=== PATIENT | female | born 1950 | race African-American/Black ===

== ENCOUNTER 2020-06-18 08:29 | Outpatient (NON) | payer MEDICARE, SELFPAY ==
[2020-06-18 21:13] LABS: SARS-CoV-2 RNA PCR Negative
== END 2020-06-18 08:30 ==
PROVIDERS: PCP Internal Medicine; Visit Provider Internal Medicine
DX: Z20.822 Contact with and (suspected) exposure to COVID-19 (principal); R68.89 Other general symptoms and signs
CPT/HCPCS: C9803; U0003; U0005

== ENCOUNTER → 2020-09-03 11:49 | Outpatient (CLI) | payer MEDICARE, SELFPAY ==
--- NOTE | ~2020-09-03 | XR_ITS ---
EXAMINATION: XR chest 2V DATE: 09/03/2020 11:57 INDICATION: Cough. TECHNIQUE: Frontal and lateral views of the chest were obtained. COMPARISON: Chest 2 views 04/27/2019 FINDINGS: The chest demonstrates clear lungs without pneumonia, pleural effusion, or pneumothorax. Th e heart size is normal. IMPRESSION: 1. No acute cardiopulmonary disease. Reviewed, dictated and finalized at location A.
== END ==
PROVIDERS: PCP Internal Medicine; Visit Provider Internal Medicine
DX: R05 Cough (principal)
CPT/HCPCS: 71046

== ENCOUNTER 2020-09-19 10:38 | Outpatient (CLI) | payer MEDICARE, SELFPAY ==
--- NOTE | ~2020-09-19 | MM_ITS ---
EXAMINATION: MM screening [facility] BI w christy HISTORY: Screening mammogram TECHNIQUE: Craniocaudal and mediolateral oblique 3-D tomosynthesis images were obtained and synthetic 2-D images were generated. CAD analysis was submitted and interpreted. COMPARISON: 06/05/2019, 05/13/2018, 05/10/2017 bilateral digital screening mammogram examinations BREAST PARENCHYMAL COMPOSITION: There are scattered areas of fibroglandular density. FINDINGS: Bilateral subcentimeter some circumscribed masses are noted. Bilateral diagnostic mammograp hy and breast ultrasound examination are recommended. IMPRESSION: 1. Bilateral breast masses. 2. Bilateral diagnostic mammography and bilateral breast ultrasound examination are recommended BI-RADS Category 0: Incomplete: Needs additional imaging evaluation. Reviewed, dictated and finalized at location A.
== END 2020-09-19 10:39 | disposition home or self-care (01) ==
LOC: ANHIMG 10:45
PROVIDERS: PCP Internal Medicine; Visit Provider Internal Medicine
DX: Z12.31 Encounter for screening mammogram for malignant neoplasm of breast (principal); R92.8 Other abnormal and inconclusive findings on diagnostic imaging of breast
CPT/HCPCS: 77063; 77067

== ENCOUNTER 2020-10-11 11:04 | Outpatient (CLI) | payer MEDICARE, SELFPAY ==
--- NOTE | ~2020-10-11 | MMUS_ITS ---
EXAMINATION: MM diagnostic mammo BI, US breast BI limited HISTORY: Follow-up breast asymmetries TECHNIQUE: Additional 3-D tomosynthesis images of the breasts were performed and synthetic 2-D images were generated. CAD analysis was submitted and interpreted. High resolution limited bilateral breast ultrasound was performed. COMPARISON: 09/19/2020 BREAST PARENCHYMAL COMPOSITION: Breast composed of scattered areas of fibroglandular density FINDINGS: MAMMOGRAPHIC FINDINGS: There are no suspicious masses, calcifications or architectural distortion in either breast to sugges t malignancy. ULTRASOUND: Bilateral limited breast ultrasound: In the right breast at 1:00, 3 cm from the nipple there is a 4 m m minimally complicated cysts. No suspicious masses to suggest malignancy in either breast. IMPRESSION: 1. No evidence for malignancy in either breast. 2. Routine yearly screening mammogram and regular clinical breast examination are recommended. BI-RADS Category 2: Benign finding(s). Reviewed, dictated and finalized at location A. IMPRESSION: 1. No evidence for malignancy in either breast. 2. Routine yearly screening mammogram and regular clinical breast examination a re recommended. BI-RADS Category 2: Benign finding(s).
== END 2020-10-11 11:05 | disposition home or self-care (01) ==
LOC: ANHIMG 11:05
PROVIDERS: PCP Internal Medicine; Visit Provider Internal Medicine
DX: R92.8 Other abnormal and inconclusive findings on diagnostic imaging of breast (principal)
CPT/HCPCS: 76642; 77066

== ENCOUNTER 2021-11-14 08:35 | Outpatient (CLI) | payer MEDICARE, SELFPAY ==
--- NOTE | ~2021-11-14 | MM_ITS ---
EXAMINATION: MM screening [facility] BI w christy HISTORY: Screening mammogram TECHNIQUE: Craniocaudal and mediolateral oblique 3-D tomosynthesis images were obtained and synthetic 2-D images were generated. CAD analysis was submitted and interpreted. COMPARISON: No prior mammogram is available for comparison at this institution. BREAST PARENCHYMAL COMPOSITION: There are scattered areas of fibroglandular density. FINDINGS: There is no evidence of suspicious mass, calcification, or architectural distortion to sugg est malignancy in either breast. There has been no suspicious interval change. IMPRESSION: 1. No mammographic evidence of malignancy. 2. Recommend routine screening mammography in one year. BI-RADS Category 1: Negative Reviewed, dictated and finalized at location A.
== END 2021-11-14 08:36 | disposition home or self-care (01) ==
LOC: ANHIMG 08:38
PROVIDERS: PCP Internal Medicine; Visit Provider Internal Medicine
DX: Z12.31 Encounter for screening mammogram for malignant neoplasm of breast (principal)
CPT/HCPCS: 77063; 77067

== ENCOUNTER 2022-02-26 10:58 | Outpatient (CLI) | payer MEDICARE, SELFPAY ==
[2022-02-26 20:56] LABS: Hemoglobin A1C 6.3 % (<5.7)
== END 2022-02-26 10:59 | disposition home or self-care (01) ==
LOC: ANHGOSHLAB 11:00
PROVIDERS: PCP Family Medicine; Visit Provider Family Medicine
DX: R73.09 Other abnormal glucose (principal)
CPT/HCPCS: 36415; 83036

== ENCOUNTER 2022-04-23 00:29 | Day surgery (SDC) | payer MEDICARE, SELFPAY ==
[2022-04-08 10:15] VITALS: BMI 39.6
[2022-04-23 09:10] VITALS: BP 181/83; PULSE 85; RESP 18; TEMP 36.2; O2SAT 100
--- NOTE | 2022-04-23 09:14 | P.PNAN_ITS ---
Anes - Initial Pre Proc Eval Procedure: Operation Date: 04/23/22 09:30 Proposed Procedures p Screening Colonoscopy - Van Menon MD Date/Time: 04/23/22 09:14 Surgeon: Van Menon MD Pre Op Diagnosis: neoplasm screening Patient Data Age: 71 Gender: F Height: 1.68 m Weight: 109.9 kg Last Vital Signs Temp 36.2 C L 04/23/22 09:10 Pulse 85 04/23/22 09:10 Resp 18 04/23/22 09:10 BP 181/83 H 04/23/22 09:10 Pulse Ox 100 04/23/22 09:10 O2 Del Method Room Air 04/23/22 09:10 Allergies Allergy/AdvReac Type Severity Reaction Status Date / Time No Known Allergies Allergy Unknown Verified 04/23/22 09:05 Home Medications Medication Instructions Recorded Confirmed Type cetirizine 10 mg tablet (24Hour 5 mg PO DAILY PRN allergy symptoms 04/27/19 04/08/22 Rx Allergy) #10 tabs amlodipine 10 mg tablet 10 mg PO DAILY #90 tabs 12/02/20 04/08/22 Rx valsartan 160 1 tablet PO DAILY #90 tabs 12/02/20 04/08/22 Rx mg-hydrochlorothiazide 25 mg tablet budesonide 32 mcg/actuation nasal 2 spray intranasal BID #8.43 mL 01/06/22 04/08/22 Rx spray Patient hx anesthesia problems: none Family hx anesthesia problems: none Results Review: All pre-operative results and documents have been reviewed as part of the pre- operative evaluation. [facility] Past Medical History Medical History Hypertension Surgical History Surgical History Acquired absence of both cervix and uterus H/O section Family History Family History Mother Cerebrovascular accident Father Family history of renal failure Social History Social History Smoking status: Never smoker Alcohol intake: never Substance use type: does not use Living arrangements: with family Gender identity (if verbalized by the patient): Female Spiritual care concerns: No Anes - Eval Final PreProcedure Day of Procedure 04/23/22 09:14 Patient weight: obese Lungs: clear to auscultation Airway: Mallampati scale class II Neurological: alert and oriented Last oral intake: >/= 8 hours ASA classification: II Emergent: no Anesthetic plan: proceed Anesthesia type and monitoring: general GIVS and standard monitoring Results Review: All pre-operative results and documents have been reviewed as part of the pre- operative evaluation. Informed Consent: The patient's anesthetic plan and its attendant risks and benefits were discussed with the patient/family/POA. Questions were solicited and answers provided to the satisfaction of the patient/family/POA.
[2022-04-23] MEDS: LACTATED RINGERS 1,000 ML 150 ML IV CONT (09:18)
--- NOTE | 2022-04-23 09:26 | PM.HPGS ---
History of Present Illness History of Present Illness Consent: Risks, benefits, and alternatives have been discussed and questions answered. Patient agrees to proceed with procedure. Chief complaint: neoplasm screening Narrative: Karen Reyes is a 71 year old female Presents for screening colonoscopy. Patient's current weight appetite and bowel movements are normal. She patient denies abdominal pain. She has had no bleeding. Family history is significant that her father had colon cancer. Patient presents today for screening colonoscopy. Review of Systems Review of Systems: Review of systems noncontributory. [facility] Past Medical History Medical History (Updated 04/23/22 @ 09:28 by Van Menon MD) Hypertension Surgical History Surgical History Acquired absence of both cervix and uterus H/O section Family History Family History Mother Cerebrovascular accident Father Family history of renal failure Social History Social History Smoking status: Never smoker Alcohol intake: never Substance use type: does not use Living arrangements: with family Gender identity (if verbalized by the patient): Female Spiritual care concerns: No Meds Home Medications and Allergies Home Medications Medication Instructions Recorded Confirmed Type cetirizine 10 mg tablet (24Hour 5 mg PO DAILY PRN allergy symptoms 04/27/19 04/08/22 Rx Allergy) #10 tabs amlodipine 10 mg tablet 10 mg PO DAILY #90 tabs 12/02/20 04/08/22 Rx valsartan 160 1 tablet PO DAILY #90 tabs 12/02/20 04/08/22 Rx mg-hydrochlorothiazide 25 mg tablet budesonide 32 mcg/actuation nasal 2 spray intranasal BID #8.43 mL 01/06/22 04/08/22 Rx spray Allergies Allergy/AdvReac Type Severity Reaction Status Date / Time No Known Allergies Allergy Unknown Verified 04/23/22 09:05 Vital Signs Vital Signs - 24 hr 04/23/22 09:10 Temperature 97.2 F L Pulse Rate 85 Respiratory Rate 18 Blood Pressure 181/83 H Pulse Oximetry 100 Oxygen Delivery Room Air Exam Narrative: Physical exam reveals patient to be alert. Vital signs stable. HEENT exam is unremarkable. Patient is anicteric. Lungs are clear to auscultation and percussion. Heart is without murmur or extra sounds. Abdomen bowel sounds are present soft nontender with no organomegaly. Digital external rectal exam is normal. Assessment and Plan Assessment and plan (1) Family history of colon cancer in father: Code(s): Z80.0 - Family history of malignant neoplasm of digestive organs Status: Acute Assessment and Plan: Patient's father had colon cancer. For this reason screening colonoscopy is suggested at 5 year intervals. Further recommendations will be given after endoscopy.
[2022-04-23 10:18] VITALS: BP 125/67; PULSE 68; RESP 13; O2SAT 100
[2022-04-23 10:28] VITALS: BP 159/75; PULSE 67; RESP 14; O2SAT 100
[2022-04-23 10:38] VITALS: BP 160/78; PULSE 62; RESP 18; O2SAT 100
== END 2022-04-23 10:39 | disposition home or self-care (01) ==
PROVIDERS: PCP Family Medicine; Visit Provider Internal Medicine Gastroenterology
PROC: 0DJD8ZZ Inspection of Lower Intestinal Tract, Via Natural or Artificial Opening Endoscopic (ICD-10-PCS; CPT 45378; principal; 2022-04-23 09:30)
DX: Z12.11 Encounter for screening for malignant neoplasm of colon (principal); K64.8 Other hemorrhoids; K57.30 Diverticulosis of large intestine without perforation or abscess without bleeding; I10 Essential (primary) hypertension; E66.9 Obesity, unspecified; Z68.39 Body mass index [BMI] 39.0-39.9, adult; Z79.899 Other long term (current) drug therapy; Z80.0 Family history of malignant neoplasm of digestive organs
CPT/HCPCS: G0105; J2704; J7120

== ENCOUNTER 2023-02-16 09:51 | Outpatient (CLI) | payer MEDICARE, SELFPAY ==
--- NOTE | ~2023-02-16 | MM_ITS ---
EXAMINATION: MM screening [facility] BI w christy HISTORY: Screening mammogram TECHNIQUE: Craniocaudal and mediolateral oblique 3-D tomosynthesis images were obtained and synthetic 2-D images were generated. CAD analysis was submitted and interpreted. COMPARISON: 11/10/2021 bilateral screening mammogram 10/11/2020 diagnostic bilateral mammogram and Limited bilateral breast ultrasound examination 09/19/2020, 06/05/2019 bilateral screening mammogram examinations BREAST PARENCHYMAL COMPOSITION: There are scattered areas of fibroglandular density. FINDINGS: There is no evidence of suspicious mass, calcification, or architectural distortion to sugg est malignancy in either breast. There has been no suspicious interval change. IMPRESSION: 1. No mammographic evidence of malignancy. 2. Recommend routine screening mammography in one year. BI-RADS Category 1: Negative Reviewed, dictated and finalized at location A.
--- NOTE | ~2023-02-16 | DEXA_ITS ---
Bone Density Report Name: BING GARBER Age: 72 Sex: Female Ethnicity: White Date of : 1950 Indication: postmenopausal; screening for osteoporosis; height loss; hysterectomy; Referring Provider: CRISTEL PARSON Study: Bone densitometry was performed. Exam Date: February 16, 2023 Accession number: [id number] Bone Density: Region BMD T-score Z-score Classification AP Spine(L1-L4) 1.033 -0.1 2.1 Normal Femoral Neck (Left) 0.843 -0.1 1.9 Normal Total Hip (Left) 0.986 0.4 2.0 Normal Femoral Neck (Right) 0.741 -1.0 1.0 Normal Total Hip (Right) 0.990 0.4 2.0 Normal Total Hip Mean 0.988 0.4 2.0 Normal World Health Organization criteria for BMD impression classify patients as: Normal (T-score at or above -1.0), Osteopenia (T-score between -1.0 and -2.5), or Osteoporosis (T-score at or below -2.5). 10-year Fracture Risk: FRAX not reported because: All T-scores for Spine Total, Hip Total, Femoral Neck at or above -1.0 Clinical Information Provided by Patient: Has used the following medications: Vitamin D, Calcium Has the following medical conditions: Hysterectomy Patient maximum height was 66 Menopause Age: 60 Does not regularly consume dairy products Drinks caffeinated beverages Onset of menses at age 12 Number of children 3 Impression: The patient has normal bone mass. Discussion: BONE DENSITY IS ABOVE THE MINIMUM DESIRABLE LEVEL AT ALL SKELETAL SITES TESTED. This patient?s bone mineral density is above the minimum desirable level (T-score -1.0 or better) at all sites measured. The patient should follow a healthful lifestyle (good nutrition with adequate calcium and vitamin D, and appropriate weight-bearing exercise). Follow-Up: Consider repeating this study in 5 years or sooner if there is some new clinical indication. Reported by: WAGNER on 02/16/2023 10:34:00 AM. Reviewed, dictated and finalized at location [facility]
== END 2023-02-16 09:52 | disposition home or self-care (01) ==
PROVIDERS: PCP Family Medicine; Visit Provider Family Medicine
DX: Z12.31 Encounter for screening mammogram for malignant neoplasm of breast (principal); Z78.0 Asymptomatic menopausal state
CPT/HCPCS: 77063; 77067; 77080

== ENCOUNTER 2023-03-04 11:09 | Outpatient (CLI) | payer MEDICARE, SELFPAY ==
[2023-03-04 19:30] LABS: Alanine Aminotransferase 13 U/L (6-35); Albumin Level 4.2 g/dL (3.5-5.1); Alkaline Phosphatase 89 U/L (38-126); Anion Gap 5 mmol/L (8-16); Aspartate Amino Transferase 29 U/L (14-36); Blood Urea Nitrogen 16 mg/dL (7-17); Calcium 9.1 mg/dL (8.4-10.2); Carbon Dioxide 32 mmol/L (22-30); Chloride 100 mmol/L (98-107); Cholesterol 197 mg/dL (0-200); Estimated Glomerular Filt Rate 59; Glucose 105 mg/dL (65-110); HDL Direct 34 mg/dL; Potassium 4.5 mmol/L (3.4-5.0); Sodium 137 mmol/L (137-145); Triglycerides 126 mg/dL (<150)
[2023-03-04 19:41] LABS: LDL Cholesterol Direct 100 mg/dL
[2023-03-04 21:05] LABS: Hemoglobin A1C 5.4 % (<5.7)
== END 2023-03-04 11:10 | disposition home or self-care (01) ==
LOC: ANHGOSHLAB 11:11
PROVIDERS: PCP Family Medicine; Visit Provider Family Medicine
DX: R73.01 Impaired fasting glucose (principal); I10 Essential (primary) hypertension; Z13.220 Encounter for screening for lipoid disorders
CPT/HCPCS: 36415; 80053; 80061; 83036

== ENCOUNTER 2023-09-16 08:41 | Outpatient (CLI) | payer MEDICARE, SELFPAY ==
--- NOTE | 2023-09-26 18:21 | WPDSLEEPSTUD ---
Sleep Study Date of Study: 09/16/23 Ordering Provider: Stef Mace DO Interpreting Physician: Pattie Key MD Sleep Study Type: Split Polysomnogram Height: 1.63 m Weight: 92.986 kg Body Mass Index: 35.2 Neck Circumference (inches): 14 Silt: 8 Reason for Sleep Study Fragmented sleep Sleep History Karen Reyes is a 73-year-old woman with fragmented sleep, never sleeping more than 5-6 hours. She takes naps during the day. She never awakens from sleep short of breath. She occasionally wakes at night with heartburn, belching, mainly coughing. She occasional snores, however never snores loudly enough that others complain. She occasionally has trouble sleeping when she has a cold. She never wakes up gasping for breath during the night. She never has breathing problems at night. She occasionally sweats excessively at night. She never notices her heart pounding or beating irregularly during the night. She frequently falls asleep during the day. She rarely falls asleep involuntarily, never falls asleep while driving. She never experiences loss of muscle tone with strong emotion. She never feels paralyzed on waking or falling asleep. She never experiences vivid dreams upon waking or falling asleep. She never feels afraid of going to sleep. She rarely has nightmares. She frequently recalls her dreams. She never has thoughts racing through her mind. She never feels sad or depressed. She never feels anxiety. She occasionally notices parts of her body jerk. She rarely kicks during the night. She never feels crawling or aching feelings in her legs. She rarely feels leg pain at night. She never has morning jaw pain, and rarely grinds her teeth at night. She rarely feels bothered by pain during the day, is rarely awakened by pain during the night. She occasionally wakes up feeling stiff in the morning, rarely wakes feeling sore or achy in the morning. She never awakens with pain in her neck, spine, or joints. Normal bedtime is midnight, falling asleep within 30 minutes or occasionally up to 1 hour, waking 1-2 times at night. While awake, she might watch television, or toss and turn until she returns to sleep. She wakes between 5:00 a.m. to 6:00 a.m., and she keeps the same schedule on weekends. She estimates getting between 5 and 6 hours of sleep at night. Her sleep may be disturbed by sinus problems, stuffiness or coughing. She takes naps in the afternoon or evening. A short nap lasting 10-15 minutes may be refreshing. She feels better in the morning compared to other times of day. Habits:??Tobacco: Never smoked Caffeine: 2 cups per week Alcohol: None Recreational substances: None [facility] Past Medical History Medical History (Updated 09/28/23 @ 12:59 by Pattie Key MD) Allergic rhinitis Gastroesophageal reflux Hypertension Surgical History Surgical History Acquired absence of both cervix and uterus H/O section Family History Family History Mother Cerebrovascular accident Father Family history of renal failure Social History Social History Smoking status: Never smoker Alcohol intake: never Substance use: never Substance use type: does not use Lack of Transportation: No Lack of Food: Never True Current Housing: I Have Housing Concerned About Future Housing: No Difficulty Paying Gas/Electric Bills: No Difficulty Paying for Meds: No Currently Unemployed: No Difficulty w/ Childcare or Family Care: No Living arrangements: with family Occupation/Education: retired Gender identity (if verbalized by the patient): Female Spiritual care concerns: No Medications Home Medications Medication Instructions Recorded Confirmed Type albuterol sulfate 90 mcg/actuation 1 inh inhalation Q4H #8.5 grams 0
[2023-09-28 12:39] VITALS: BMI 35.2
== END 2023-09-17 06:45 | disposition home or self-care (01) ==
LOC: ANHCSM 08:41
PROVIDERS: PCP Family Medicine; Visit Provider Family Medicine
DX: G47.10 Hypersomnia, unspecified (principal)
CPT/HCPCS: 95811

== ENCOUNTER 2024-02-23 14:07 | Outpatient (CLI) | payer MEDICARE, SELFPAY ==
--- NOTE | ~2024-02-23 | MM_ITS ---
EXAMINATION: MM screening [facility] BI w christy HISTORY: Screening TECHNIQUE: Craniocaudal and mediolateral oblique 3-D tomosynthesis images were obtained and synthetic 2-D images were generated. CAD analysis was submitted and interpreted. COMPARISON: Comparison to multiple prior studies sequentially, with oldest reviewed study dated 04/24. BREAST PARENCHYMAL COMPOSITION: Not dense: There are scattered areas of fibroglandular density. FINDINGS: There is a new mass in the upper inner quadrant of the right breast, anterior third. The le ft breast is stable without evidence for malignancy. IMPRESSION: 1. New right breast mass. 2. Additional mammographic views and possible breast ultrasound are recommended. BI-RADS Category 0: Incomplete: Needs additional imaging evaluation. Reviewed, dictated and finalized at location B. IMPRESSION: 1. New right breast mass. 2. Additional mammographic views and possible breast ultrasound are recommended . BI-RADS Category 0: Incomplete: Needs additional imaging evaluation.
== END 2024-02-23 14:08 | disposition home or self-care (01) ==
LOC: ANHIMG 14:09
PROVIDERS: PCP Family Medicine; Visit Provider Family Medicine
DX: N63.12 Unspecified lump in the right breast, upper inner quadrant (principal); Z12.31 Encounter for screening mammogram for malignant neoplasm of breast
CPT/HCPCS: 77063; 77067

== ENCOUNTER 2024-03-07 13:32 | Outpatient (CLI) | payer MEDICARE, SELFPAY ==
--- NOTE | ~2024-03-07 | MMUS_ITS ---
EXAMINATION: US breast RT limited, MM diagnostic [facility] RT w christy HISTORY: Follow-up right breast mass TECHNIQUE: Additional 3-D tomosynthesis images of the right breast were performed and synthetic 2-D i mages were generated. CAD analysis was submitted and interpreted. High resolution Limited right breas t ultrasound was performed. COMPARISON: Comparison to multiple prior studies sequentially, with oldest reviewed study dated 06/05. BREAST PARENCHYMAL COMPOSITION: Not dense: There are scattered areas of fibroglandular density. FINDINGS: MAMMOGRAPHIC FINDINGS: There is a small mass in the upper inner quadrant of the right breast, anterior third. There are no s uspicious calcifications or architectural distortion. ULTRASOUND: Limited right breast ultrasound: At 2:00, 2 cm from the nipple there is a slightly irregular cyst mango suring 5 mm. No suspicious masses to suggest malignancy. IMPRESSION: 1. No evidence for malignancy in the right breast. Benign finding. 2. Routine yearly screening mammogram and regular clinical breast examination are recommended. BI-RADS Category 2: Benign finding(s). Reviewed, dictated and finalized at location B. IMPRESSION: 1. No evidence for malignancy in the right breast. Benign finding. 2. Routine yearly screening mammogram and regular clinical breast examination a re recommended. BI-RADS Category 2: Benign finding(s).
== END 2024-03-07 13:33 | disposition home or self-care (01) ==
LOC: ANHIMG 13:33
PROVIDERS: PCP Family Medicine; Visit Provider Family Medicine
DX: R92.8 Other abnormal and inconclusive findings on diagnostic imaging of breast (principal); N63.10 Unspecified lump in the right breast, unspecified quadrant
CPT/HCPCS: 76642; 77061; 77065; G0279

== ENCOUNTER 2024-08-04 11:57 | Outpatient (CLI) | payer MEDICARE, SELFPAY ==
--- OUTSIDE RECORDS SUMMARY | 2024-08-04 12:25 | XMS_ITS | Encounter Summary ---
Author Organization [facility] Address [address] [place] [id number] Care Team Providers Care Automobile Radiator Mechanic Name Role Phone Daniel Franz MD Primary Care Provider [phone] Encounter Details Date Type Department Care Team (Latest Contact Info) Description 08/04/2024 Travel Social History Tobacco Use Types Packs/Day Years Used Date Smoking Tobacco: Never Smokeless Tobacco: Never Comments:Counseled by Dr. Missy aaron. Alcohol Use Standard Drinks/Week Comments Never 0 (1 standard drink = 0.6 oz pur e alcohol) AUDIT-C Answer Date Recorded Q1: How often do you have a drink containing alcohol? Never 06/20/2024 Q2: How many drinks containi ng alcohol do you have on a typical day when you are drinking? Patient does not drink Q3: How often do you have si x or more drinks on one occasion? Never 06/20/2024 PHQ-2 Answer Date Recorded Patient Health Questionnaire-2 Score 0 06/20/2024 Comments Unknown Sex and Gender Information Value Date Recorded Sex Assigned at Female 06/19/2024 7:39 AM TELEPHONE SURVEYOR Legal Sex Female 10:44 AM TELEPHONE SURVEYOR Gender Identity Female 06/19/2024 7:39 AM TELEPHONE SURVEYOR Sexual Orientation Straight 08/01/2024 8: 44 AM CDT documented as of this encounter Plan of Treatment Upcoming Encounters Date Type Department Care Team ( st Contact Info) Description 12/18/2024 8:40 AM CDT Office Visit [facility] - [place] [address] [address] [place] [address] Daniel Franz MD [facility] [address] [place] [address] documented as of this encounter Visit Diagnoses Not on filedocumented in this encounter Additional Health Concerns Assessment Noted Time PHQ-9 Depression Total Score: 2 06/20/19 25 9:08 AM TELEPHONE SURVEYOR documented as of this encounter Care Teams Automobile Radiator Mechanic Relationship Specialty Start Date End Date Daniel Franz MD [facility] [facility] [address] [place] [address] PCP - General INTERNAL MEDICINE 03/27/24 documented as of this encounter
--- OUTSIDE RECORDS SUMMARY | 2024-08-04 12:25 | XMS_ITS | Encounter Summary ---
Author Organization [facility] Address [address] [place] [address] Care Team Providers Care Global Technical Writer Name Role Phone Daniel Franz MD Primary Care Provider [phone] Reason for Visit * Reason Onset Date Comments Record Request 08/03/2024 Encounter Details Date Type Department Care Team (Late st Contact Info) Description 08/03/2024 Telephone [facility] - [place] [address] [place] [address] [address] [place] [address] Daniel Franz MD [address] [place] [address] [address] [place], [place] [id number] Record Request Social History Tobacco Use Types Packs/Day Years [...] Sex Assigned at Female 06/19/2024 7:39 AM ACID TANK CLEANER Legal Sex Female 10:44 AM ACID TANK CLEANER Gender Identity Female 06/19/2024 7:39 AM ACID TANK CLEANER Sexual Orientation Straight 08/01/2024 8: 44 AM CDT documented as of this encounter Progress Notes * Constance Nunez MA - 08/04/2024 8:37 AM CDT Karen is coming in at 10 today for a redraw * Vicki Weber - 08/03/2024 4:00 PM CDT Karen [facility] testing is asking for a copy of the EKG Tracing and labresults from August 01, 2024 so they don't have to be repeated. The patient's appointment with them is tomorrow August 04, 2024. Please them today. Thank you. documented in this encounter Plan of Treatment Upcoming Encounters Date Type Department Care Team (Late st Contact Info) Description 12/18/2024 8:40 AM CDT Office Visit [facility] - [place] [address] [address] [place] [address] Daniel Franz MD [address] [place] [id number] documented as of this encounter Visit Diagnoses Not on filedocumented in this encounter Additional Health Concerns Assessment Noted Time PHQ-9 Depression Total Score: 2 06/20/19 25 9:08 AM ACID TANK CLEANER documented as of this encounter Care Teams Global Technical Writer Relationship Specialty Start Date End Date Daniel Franz MD [address] [place] [id number] PCP - General INTERNAL MEDICINE 03/27/24 documented as of this encounter
--- OUTSIDE RECORDS SUMMARY | 2024-08-04 12:25 | XMS_ITS | Encounter Summary ---
Author Organization [facility] Address [address] [place] [id number] Care Team Providers Care Milanese Knitting Machine Operator Name Role Phone Daniel Franz MD Primary Care Provider [phone] Reason for Visit * Reason Onset Date Comments Information 08/02/2024 Encounter Details Date Type Department Care Team (Late st Contact Info) Description 08/02/2024 Telephone [facility] Multispecialty Care - [place] [address] [place] [address] [address] [place] [address] Daniel Franz MD [address] [place] [address] [address] [place] [address] Information Social History Tobacco Use Types Packs/Day Years [...] Sex Assigned at Female 06/19/2024 7:39 AM BAR FINISH OPERATOR Legal Sex Female 10:44 AM BAR FINISH OPERATOR Gender Identity Female 06/19/2024 7:39 AM BAR FINISH OPERATOR Sexual Orientation Straight 08/01/2024 8: 44 AM CDT documented as of this encounter Progress Notes * Constance Nunez MA - 08/03/2024 1:19 PM CDT Pt is scheduled for a nurse visit on 08/04 * Constance Nunez MA - 08/02/2024 11:37 AM CDT Called to schedule pt for a CMP redraw. LVM for pt to call the office. * Constance Nunez MA - 08/02/2024 11:37 AM CDT ----- Message from Dr. Daniel Franz sent at 08/01/2024 5:17 PM CDT ----- Regarding: FW: UNSPUN SPECIMEN Patient needs an redraw of CMP thank you. ----- Message ----- From: Lidya Warren Sent: 08/01/2024 2:35 PM CDT To: Daniel Franz MD; Darlin Ramos; Lidya Warren; # Subject: UNSPUN SPECIMEN The Comprehensive Metabolic Panel has been cancelled and credited. The specimen was sent unspun exceeding the stability limit. Please contact the patient for recollect and enter a new order. Thank you documented in this encounter Plan of Treatment Upcoming Encounters Date Type Department Care Team (Late st Contact Info) Description 12/18/2024 8:40 AM CDT Office Visit [facility] Multispecialty Care - [place] [address] [address] [place] [address] Daniel Franz MD [address] [place] [address] documented as of this encounter Visit Diagnoses Not on filedocumented in this encounter Additional Health Concerns Assessment Noted Time PHQ-9 Depression Total Score: 2 06/20/19 25 9:08 AM BAR FINISH OPERATOR documented as of this encounter Care Teams Milanese Knitting Machine Operator Relationship Specialty Start Date End Date Daniel Franz MD [address] [address] PCP - General INTERNAL MEDICINE 03/27/24 documented as of this encounter
--- OUTSIDE RECORDS SUMMARY | 2024-08-04 12:26 | XMS_ITS | Clinical Summary ---
Author Organization [facility] Address Critical access hospital[address] [place] [address] Care Team Providers Care Veterinary Science Teacher Name Role Phone Daniel Franz MD Primary Care Provider [phone] Allergies No known active allergies Medications Olmesartan-amLODIP ine-HCTZ 40-5-25 MG TabIndications:Kaylin mana hypertension Take 1 tablet by mouth daily. 90 tablet 1 06/20/19 25 Active albuterol sulfate HFA 108 (90 Base) MCG/ACT inhalerIndications :Environmental allergies Inhale 1 puff into the lungs every 6 (six) hours as needed for Wheezing. 18 g 4 06/20/19 25 Active acetaminophen CR (TYLENOL 8 HOUR ARTHRITIS PAIN) 650 MG Tab CR 8 hr tabletIndications: Primary osteoarthritis of both knees Take 1 tablet (650 mg total) by mouth 3 (three) times daily as needed. 180 tablet 06/20/19 25 Active spironolactone (ALDACTONE) 100 MG tabletIndications: Primary hypertension Take 1 tablet (100 mg total) by mouth daily. 90 tablet 1 07/14/19 25 025 Discontinued spironolactone (ALDACTONE) 50 MG tabletIndications: Primary hypertension Take 1 tablet (50 mg total) by mouth daily. 90 tablet 1 07/14/19 25 025 Discontinued(Ot her- Please enter comment in Notes field) Active Problems Problem Noted Date Diagnosed Date High blood pressure 01/22/2017 Overview (07/26/2024): Not sure of when diagnosed Diverticulosis of colon 06/04/2011 Encounters Date Type Department Care Team Description 08/04/2024 Travel 08/03/2024 Telephone [place] [address] [facility] [address] [place] [address] Daniel Franz MD Record Request 08/02/2024 Telephone [place] [address] [facility] [address] [place] [address] Daniel Franz MD Information 08/01/2024 8:40 AM CDT Office Visit [place] [address] [address] [facility] [address] [place] [address] Daniel Franz MD Surgical Clearance (Spironlactone is making her fatigued, nauseous, dizzy, and light headed ); Knee Pain 08/01/2024 Travel 07/26/2024 Telephone [place] [address] [facility] [address] [place] [address] Daniel Franz MD Lab Results 07/25/2024 Telephone [place] [address] [address] [facility] [address] [place] [address] Daniel Franz MD Follow Up 07/22/2024 Telephone [place] [address] [address] [facility] [address] [place] [address] Daniel Franz MD Medication Information 07/21/2024 11:30 AM BUDGET CONSULTANT Laboratory Only [place] [address] [facility] [address] [place] [address] Daniel Franz MD 07/21/2024 Travel 07/14/2024 4:20 PM BUDGET CONSULTANT Telemedicine [place] [address] [facility] [address] [place] [address] Daniel Franz MD Hypertension 07/14/2024 9:00 AM BUDGET CONSULTANT Allied Health/Nurse Visit [place] [address] [place] [address] [address] [place] [address] Daniel Franz MD Allied Health Visit 07/14/2024 Telephone [place] [address] [facility] [address] [place] [address] Daniel Franz MD Appointment Request 07/14/2024 Telephone [place] [address] [facility] [address] [place] [address] Daniel Franz MD Appointment Request 07/04/2024 Telephone [place] [address] [place] [address] [address] [place] [address] Daniel Franz MD Record Request 06/22/2024 10:30 AM BUDGET CONSULTANT Allied Health/Nurse Visit [place] [address] [place] [address] [address] [place] [address] Daniel Franz MD Allied Health Visit (UA) 06/22/2024 Travel 06/21/2024 Telephone [place] [address] [facility] [address] [place] [address] Daniel Franz MD Other 06/20/2024 8:00 AM BUDGET CONSULTANT Office Visit [place] [address] [place] [address] [address] [place] [address] Daniel Franz MD New Patient; Hypertension; Allergies 06/20/2024 - 06/20/2024 11:59 PM BUDGET CONSULTANT Hospital Encounter [facility] [address] [place] [address] Daniel Franz MD Discharge Disposition: Home or Self Care (Routine Discharge) 06/[facility]20[facility] [address] [facility] [address] [place] [address] Daniel Franz MD Lab Order 06/20/2024 [facility] [address] [place] [address] Daniel Franz MD Record Request 06/20/2024 Travel from Last 3 Months Immunizations Name Administration Dates Next Due Fluzone High Dose (IIV, trivalent, 0.5mL) 2023 Fluzone High Dose - >Age 65 (Prefilled Syringe) 01/27/2023,03/11/2022 Influenza (Generic) 02/22/2020 Influenza Adult (Generic) 05/06/2021 Pneumococcal (Prevnar 20) 09/03/2022 Family History Medical History Relation Comments Diabetes Brother Hypertension Brother Cancer Father Colon cancer Diabetes Father Hypertension Father Kidney Disease Father Diabetes Mother Hypertension Mother Stroke Mother Cancer Sister Breast cancer Relation Status Comments Brother Father Mother Sister Social History Tobacco Use Types Packs/Day Years Used Date Smoking Tobacco: Never Smokeless Tobacco: Never Tobacco Cessation:Counseling Given: Yes Comments:Counseled by Dr. Franz. Alcohol Use Standard Drinks/Week Comments Never 0 [...] Sex Assigned at Female 06/19/2024 7:39 AM BUDGET CONSULTANT Legal Sex Female 10:44 AM BUDGET CONSULTANT Gender Identity Female 06/19/2024 7:39 AM BUDGET CONSULTANT Sexual Orientation Straight 08/01/2024 8: 44 AM CDT Last Filed Vital Signs Vital Sign Reading Time Taken Comments Blood Pressure 122/77 08/01/2024 8:44 AM CDT Pulse 81 08/01/2024 8:44 AM CDT Temperature 35.9 C (96.7 F) 08/01/2024 8:44 AM CDT Respiratory Rate 18 08/01/2024 8:44 AM CDT Oxygen Saturation 99% 08/01/2024 8:44 AM CDT Inhaled Oxygen Concentration - - Weight 90.7 kg (200 lb) 08/01/2024 8:44 AM CDT Height 163.8 cm (5' 4.5 ) 08/01/2024 8:44 AM CDT Body Mass Index 33.8 08/01/2024 8:44 AM CDT Plan of Treatment Upcoming Encounters Date Type Department Care Team (Late st Contact Info) Description 12/18/2024 8:40 AM CDT Office Visit [facility] Medical [facility] Multispecialty Care - [place] [address] [address] [place] [address] Daniel Franz MD [address] [facility] [address] [place], [place] [id number] Health Maintenance Due Date Last Done Comments Colorectal Cancer Screening Colonoscopy (10 Years) 1950 DTaP, Tdap and Td Vaccines (1 - Tdap) 1969 Zoster Vaccines (1 of 2) 2000 Annual Medicare Wellness Visit 07/28/2015 Dexa Scan (General) 07/28/2015 RSV Immunization or 60+ Years (1 - 1-dose 75+ series) 2025 Mammogram Screening 03/07/2026 03/07/2024, 02/23/2024, 02/23/2024 Pneumococcal Vaccine: 65+ Years Completed 09/03/2022 COVID-19 Vaccine Completed 03/14/2024, 04/2023, 03/17/2022, Additional history exists Influenza Adult Completed 03/14/2024, 09/0 10/2022, 03/11/2022, Additional history exists Hepatitis C Completed 06/20/2024 PHQ-2 (Physician [place]) Completed 06/20/2024 Meningococcal B Vaccine Aged Out No l onger eligible based on patient's age to complete this topic Meningococcal Vaccine Aged Out No rafaela leia eligible based on patient's age to complete this topic RSV Immunizations Under 20 Months Aged Out No longer eligible based on patient's age to complete this topic Procedures Procedure Name Priority Date/Time Associated Diagnosis Comments CBC W/DIFF AUTOMATED Routine 08/01/2024 9:19 AM CDT Pre-operative clearance PROTHROMBIN TIME, VENOUS Routine 08/01/2024 9:19 AM CDT Pre-operative clearance Abnormal coagulation profile ELECTROCARDIOGRAM (NON MIDMARK ACQUIRED) Routine 08/01/2024 9:15 AM CDT Pre-operative clearance Procedure Note - 08/01/2024 9:15 AM CDTThis note is in progress. [facility] [address] [address] Test Date: 2024-08-01 Pat Name: BING GARBER Department: 171 Room: Gender: Female Traveling Engineer: : [id number] Requested By: DANIEL FRANZ Order Number: [id number] Reading MD: DANIEL FRANZ Measurements Intervals [place] Rate: 61 P: 68 DC: 189 QRS: 24 QRSD: 82 T: 66 QT: 394 QTc: 398 Interpretive Statements SINUS RHYTHM COLLECTION VENOUS BLOOD VENIPUNCTURE Routine 08/01/2024 9:03 AM CDT Pre-operative clearance BASIC METABOLIC PANEL Routine 07/21/2024 11:43 AM BUDGET CONSULTANT Drug therapy COLLECTION VENOUS BLOOD VENIPUNCTURE Routine 07/21/2024 11:42 AM BUDGET CONSULTANT Drug therapy COLLECTION VENOUS BLOOD VENIPUNCTURE Routine 07/14/2024 4:53 PM BUDGET CONSULTANT Primary hypertension URINALYSIS AUTO DIP Routine 06/22/2024 Establishing care with new doctor, encounter for HEPATITIS C ANTIBODY Routine 06/20/2024 8:45 AM BUDGET CONSULTANT Establishing care with new doctor, encounter for General medical exam Drug therapy HEMOGLOBIN, GLYCOSYLATED Routine 06/20/2024 8:45 AM BUDGET CONSULTANT Establishing care with new doctor, encounter for General medical exam Drug therapy TSH W/REFLEX Routine 06/20/2024 8:45 AM BUDGET CONSULTANT Establishing care with new doctor, encounter for General medical exam Drug therapy LIPID PANEL Routine 06/20/2024 8:45 AM BUDGET CONSULTANT Establishing care with new doctor, encounter for General medical exam Drug therapy COMPREHENSIVE METABOLIC PANEL Routine 06/20/2024 8:45 AM BUDGET CONSULTANT Establishing care with new doctor, encounter for General medical exam Drug therapy CBC W/DIFF AUTOMATED Routine 06/20/2024 8:45 AM BUDGET CONSULTANT Establishing care with new doctor, encounter for General medical exam Drug therapy COLLECTION VENOUS BLOOD VENIPUNCTURE Routine 06/20/2024 8:38 AM BUDGET CONSULTANT Establishing care with new doctor, encounter for General medical exam Drug therapy MAMMOGRAM GENERIC (SCAN ORDER) 03/07/2024 from Last 3 Months or Most Recently Relevant to Health Maintenance Results * PROTIME/INR, VENOUS (08/01/2024 9:19 AM CDT) PROTIME 9.8 9.3 - 11.6 SEC 08/01/2024 3:[address] [facility] INR 0.9 0.9 - 1.1 08/01/2024 3:[address] [facility] Comment: TREATMENT OR PROPHYLAXIS AGAINST: THERAPEUTIC RANGE (INR): VENOUS THROMBOSIS 2.0-3.0 PULMONARY EMBOLUS 2.0-3.0 MECHANICAL PROSTHETIC VALVES 2.5-3.5 08/01/2024 9:19 AM CDT Daniel Franz MD LABORATORY Final Result [facility] [address] [place] [address], [place] [phone] * (ABNORMAL) CBC W/DIFF AUTOMATED (08/01/2024 9:19 AM CDT) Only the most recent of2 resultswithin the time period is included. WBC 4.21 4.00 - 10.80 x10'3/uL 08/01/2024 3:[address] [facility] RBC 5.22 4.10 - 5.40 x10'6/uL 08/01/2024 3:[address] [facility] HGB 13.2 12.0 - 16.0 G/DL 08/01/2024 3:32 PM [facility] HCT 43.8 36.0 - 47.0 % 08/01/2024 3:32 PM CDT [facility] MCV 83.9 78.0 - 100.0 FL 08/01/2024 3:[address] [facility] MCH 25.3(L) 27.0 - 31.0 PG 08/01/2024 3:32 PM [facility]T [facility] MCHC 30.1(L) 33.0 - 36.0 G/DL 08/01/2024 3:[address] [facility] RDW 13.7 11.5 - 14.5 % 08/01/2024 3:[address] [facility] PLT 255 150 - 350 x10'3/uL 08/01/2024 3:32 PM CDT [facility] MPV 12.2(H) 7.4 - 10.4 FL 08/01/2024 3:[address] [facility] DIFFERENTIAL TYPE AUTOMATED DIFFERENTIAL 08/01/2024 3:[address] [facility] NEUTROPHILS % 52.5 % 08/01/2024 3:[address] [facility] LYMPHOCYTES % 35.2 % 08/01/2024 3:32 PM CDT [facility] MONOCYTES % 7.1 % 08/01/2024 3:32 PM CDT [facility] EOSINOPHILS % 4.0 % 08/01/2024 3:[address] [facility] BASOPHILS % 1.0 % 08/01/2024 3:[address] [facility] IMMATURE GRANS % 0.2 % 08/01/2024 3:[address] [facility] ABS. NEUTROPHILS 2.21 1.60 - 8.30 x10'3/uL 08/01/2024 3:[address] [facility] ABS. LYMPHOCYTES 1.48 0.80 - 4.70 x10'3/uL 08/01/2024 3:[address] [facility] ABS. MONOCYTES 0.30 0.00 - 1.50 x10'3/uL 08/01/2024 3:[address] [facility] ABS. EOSINOPHILS 0.17 0.00 - 0.40 x10'3/uL 08/01/2024 3:[address] [facility] ABS. BASOPHILS 0.04 0.00 - 0.20 x10'3/uL 08/01/2024 3:[address] [facility] ABS. IMMATURE GRANULOCYTES 0.01 0.00 - 0.03 x10'3/uL 08/01/2024 3:[address] [facility] 08/01/2024 9:19 AM CDT us Daniel Franz MD LABORATORY Final Result [facility] [address] [place] [address], * (ABNORMAL) BASIC METABOLIC PANEL (07/21/2024 11:43 AM BUDGET CONSULTANT) [facility] SODIUM S/P/B 140 136 - 145 MMOL/L 07/21/2024 7:[address] [facility] POTASSIUM S/P/B 4.4 3.5 - 5.1 MMOL/L 07/21/2024 7:[address] [facility] CHLORIDE S/P/B 103 98 - 107 MMOL/L 07/21/2024 7:[address] [facility] CO2 33.0(H) 21 - 32 MMOL/L 07/21/2024 7:[address] [facility] GLUCOSE 87 70 - 99 MG/DL 07/21/2024 7:[address] [facility] BUN 21(H) 7 - 18 MG/DL 07/21/2024 7:36 PM [facility] CREATININE S/P/B 1.26(H) 0.55 - 1.02 MG/DL 07/21/2024 7:36 PM [facility] CALCIUM S/P/B 9.5 8.4 - 10.5 MG/DL 07/21/2024 7:[address] [facility] ANION GAP 4.0(L) 5 - 15 MMOL/L 07/21/2024 7:36 PM [facility] Comment:REFERENCE RANGE NOT ESTABLISHED OSMOLALITY (CALC) 292 MOSM/KG 025 7:36 PM [facility] Comment:REFERENCE RANGE NOT ESTABLISHED GFR ESTIMATE 45(L) >90 ML/MIN/1. 73 M2 07/21/2024 7:[address] [facility] GFR NOTES GFR REFERENCE S: 07/21/2024 7:36 PM [facility] Comment: THE ESTIMATED GFR IS CALCULATED USING THE 2020 CKD-EPI EQUATION. THE FOLLOWING CATEGORIES FOR GRADING RENAL FUNCTION ARE RECOMMENDED BY THE INTERNATIONAL SOCIETY OF NEPHROLOGY (KDIGO 2012 CLINICAL PRACTICE GUIDELINE). G1,NORMAL OR HIGH: >89 ml/min/1.73 m2 G2,MILDLY DECREASED: 60-89 ml/min/1.73 m2 G3A,MILDLY TO MODERATELY DECREASED: 45-59 ml/min/1.73 m2 G3B,MODERATELY TO SEVERELY DECREASED: 30-44 ml/min/1.73 m2 G4,SEVERELY DECREASED: 15-29 ml/min/1.73 m2 G5,KIDNEY FAILURE: <15 ml/min/1.73 m2 07/21/2024 11:4 3 AM BUDGET CONSULTANT Daniel Franz MD LABORATORY Final Result [facility] [address] [place] [address], * (ABNORMAL) URINALYSIS AUTO DIP (06/22/2024) COLOR (U) YELLOW YELLOW [address], [place] TRANSPARENCY CLEAR CLEAR [address], [place] GLUCOSE (U) NEGATIVE NEGATIVE MG/DL [address], [place] BILIRUBIN (U) NEGATIVE NEGATIVE [address], [place] KETONES MG/DL (U) NEGATIVE NEGATIVE MG/DL [address], [facility] SPECIFIC GRAVITY (U) 1.020 1.001 - 1.035 [address], [place] BLOOD (U) NEGATIVE NEGATIVE [address], [facility] U PH 6.5 5.0 - 9.0 [address], [place] PROTEIN (U) NEGATIVE NEGATIVE mg/dL [address], [facility] UROBILINOGEN 1.0 0.2 - 1.0 EU/dL = mg/dL [facility], [place] NITRITES NEGATIVE NEGATIVE MG/DL [address], [facility] LEUKOCYTES (U) 1+ (SMALL)(A) NEGATIVE [address], [facility] URINE SPECIMEN OBTAINED BY CLEAN CATCH PROCEDURE / Unknown 06/22/2024 us Daniel Franz MD URINE ORDERABLES Final Result [facility] [place] [address] [place] [address], * TSH W/REFLEX (06/20/2024 8:45 AM BUDGET CONSULTANT) Pathologist [facility] TSH 2.555 0.358 - 3.740 uIU/ML 06/20/2024 4:56 PM BUDGET CONSULTANT [facility] 06/20/2024 8:45 AM BUDGET CONSULTANT us Daniel Franz MD LABORATORY Final Result [facility] [place] [address] [place] [address], * (ABNORMAL) HEMOGLOBIN, GLYCOSYLATED (06/20/2024 8:45 AM BUDGET CONSULTANT) HGB A1C 5.4 4.5 - 6.2 % 06/20/2024 4:[address] [facility] ESTIMATED AVG GLUCOSE 108(H) 74 - 106 MG/DL 06/20/2024 4:[address] [facility] 06/20/2024 8:45 AM BUDGET CONSULTANT Daniel Franz MD LABORATORY Final Result [facility] [place] [place] [place] [address], * (ABNORMAL) COMPREHENSIVE METABOLIC PANEL (06/20/2024 8:45 AM BUDGET CONSULTANT) SODIUM S/P/B 142 136 - 145 MMOL/L 06/20/2024 4:56 PM [facility] POTASSIUM S/P/B 4.4 3.5 - 5.1 MMOL/L 06/20/2024 4:56 PM [facility] CHLORIDE S/P/B 102 98 - 107 MMOL/L 06/20/2024 4:[address] [facility] CO2 31.7 21 - 32 MMOL/L 06/20/2024 4:[address] [facility] GLUCOSE 105(H) 70 - 99 MG/DL 06/20/2024 4:56 PM [facility] BUN 27(H) 7 - 18 MG/DL 06/20/2024 4:56 PM [facility] CREATININE S/P/B 1.37(H) 0.55 - 1.02 MG/DL 06/20/2024 4:56 PM [facility] CALCIUM S/P/B 9.5 8.4 - 10.5 MG/DL 06/20/2024 4:56 PM [facility] BILIRUBIN TOTAL S/P/B 0.8 0.2 - 1.0 MG/DL 06/20/2024 4:56 PM [facility] ALKALINE PHOSPHATASE S/P/B 98 55 - 142 U/L 06/20/2024 4:56 PM [facility] AST 15 15 - 37 U/L 06/20/2024 4:56 PM [facility] ALT 14 14 - 59 U/L 06/20/2024 4:56 PM [facility] TOTAL PROTEIN S/P/B 7.3 6.4 - 8.2 G/DL 06/20/2024 4:56 PM [facility] ALBUMIN S/P/B 3.8 3.4 - 5.0 G/DL 06/20/2024 4:56 PM [facility] ANION GAP 8.3 5 - 15 MMOL/L 06/20/2024 4:56 PM [facility] Comment:REFERENCE RANGE NOT ESTABLISHED OSMOLALITY (CALC) 299 MOSM/KG 025 4:56 PM [facility] Comment:REFERENCE RANGE NOT ESTABLISHED GFR ESTIMATE 41(L) >90 ML/MIN/1. 73 M2 06/20/2024 4:56 PM [facility] GFR NOTES GFR REFERENCE S: 06/20/2024 4:56 PM [facility] Comment: THE ESTIMATED GFR IS CALCULATED USING THE 2020 CKD-EPI EQUATION. THE FOLLOWING CATEGORIES FOR GRADING RENAL FUNCTION ARE RECOMMENDED BY THE INTERNATIONAL SOCIETY OF NEPHROLOGY (KDIGO 2012 CLINICAL PRACTICE GUIDELINE). G1,NORMAL OR HIGH: >89 ml/min/1.73 m2 G2,MILDLY DECREASED: 60-89 ml/min/1.73 m2 G3A,MILDLY TO MODERATELY DECREASED: 45-59 ml/min/1.73 m2 G3B,MODERATELY TO SEVERELY DECREASED: 30-44 ml/min/1.73 m2 G4,SEVERELY DECREASED: 15-29 ml/min/1.73 m2 G5,KIDNEY FAILURE: <15 ml/min/1.73 m2 06/20/2024 8:45 AM BUDGET CONSULTANT Daniel Franz MD LABORATORY Final Result [facility] [address] [place] [address], * (ABNORMAL) LIPID PANEL (06/20/2024 8:45 AM BUDGET CONSULTANT) CHOLESTEROL 175 <200 MG/DL 06/20/2024 4:[address] [facility] TRIGLYCERIDES 72 <150 MG/DL 06/20/2024 4:56 PM [facility] HDL 54 >40 MG/DL 06/20/2024 4:[address] [facility] LDL-C 107(H) <100 MG/DL 06/20/2024 4:[address] [facility] VLDL CALCULATION 14 5 - 28 MG/DL 06/20/2024 4:[address] [facility] CHOL/HDL RATIO 3.2 0.0 - 4.0 06/20/2024 4:56 PM [facility] LDL/HDL 2.0 0.41 - 2.13 06/20/2024 4:[address] [facility] NON HDL CHOLESTEROL 121 <140 MG/DL 06/20/2024 4:[address] [facility] 06/20/2024 8:45 AM BUDGET CONSULTANT us Daniel Franz MD LABORATORY Final Result [facility] [address] [place] [address], * HEPATITIS C ANTIBODY (06/20/2024 8:45 AM BUDGET CONSULTANT) HEPATITIS C AB NON-REACTI VE NON-REACT [place] 06/22/2024 6:39 PM BUDGET CONSULTANT [facility] Comment: ANTIBODIES TO HCV NOT DETECTED. DOES NOT EXCLUDE THE POSSIBILITY OF EXPOSURE TO HCV. 06/20/2024 8:45 AM BUDGET CONSULTANT Daniel Franz MD LABORATORY Final Result [facility] [address] [place] [address], [id number] * MAMMOGRAM GENERIC (SCAN ORDER) (03/07/2024) Anatomical Region Laterality Modality Other 03/07/2024 us [facility] Scanned SCANNING Final Resu lt from Last 3 Months or Most Recently Relevant to Health Maintenance Insurance MEDICARE [facility] Care Teams Veterinary Science Teacher Relationship Specialty Start Date End Date Daniel Franz MD [address] [facility] [address] [place] [address] PCP - General INTERNAL MEDICINE 03/27/24
--- OUTSIDE RECORDS SUMMARY | 2024-08-04 12:26 | XMS_ITS | Patient Health Summary ---
Author Organization [facility] Address [address] [place] [address] Care Team Providers Care Data Center Manager Name Role Phone Debbie Dacosta MD Primary Care Provider [phone] Note from [facility],non-owned Affiliates and Associated Physician Practices is amultiple site organization consisting of ambulatory clinics and hospital sitesin [place], [place], [place] and [place]. This disclosure is being madepursuant to the Care Everywhere program and may not contain all information available regarding this patient. Last updated 18.[facility] Allergies No known active allergies Medications * Be aware that medications may not be up to date on this document. Alwaysverify current medications with the patient. * valsartan-hydrochlorothiazide (DIOVAN HCT) 160-12.5 MG tablet Take 1 Tab by mouth once daily. * amLODIPine (NORVASC) 10 MG tablet Take 10 mg by mouth once daily. Active Problems Problem Noted Date Diagnosed Date Diverticulosis of colon 06/04/2011 Social History Tobacco Use Types Packs/Day Years Used Date Smoking Tobacco: Never Alcohol Use Standard Drinks/Week Comments No 0 (1 standard drink = 0.6 oz pur e alcohol) Sex and Gender Information Value Date Recorded Sex Assigned at Not on file Gender Identity Not on file Sexual Orientation Not on file Last Filed Vital Signs Vital Sign Reading Time Taken Comments Blood Pressure 178/59 06/02/2011 9:47 AM SHIFT MECHANIC Pulse 70 06/02/2011 9:47 AM SHIFT MECHANIC Temperature - - Respiratory Rate 18 06/02/2011 9:47 AM SHIFT MECHANIC Oxygen Saturation - - Inhaled Oxygen Concentration - - Weight 95.3 kg (210 lb) 06/01/2011 4:06 PM SHIFT MECHANIC Height 167.6 cm (5' 6 ) 06/01/2011 4:06 PM SHIFT MECHANIC Body Mass Index 33.89 06/01/2011 4:06 PM SHIFT MECHANIC Procedures * ENDOSCOPY, COLON, SCREENING(Performed 06/02/2011) Results * ENDOSCOPY, COLON, SCREENING (06/02/2011 10:46 AM SHIFT MECHANIC) Narrative Transcriptions Meet Hogan MD - 06/02/2011 10:46 AM CST Meet Hogan MD GI PROCEDURE ORDERAB LES Performing Organization Address City/State/[facility] Co de Phone Number [facility] ENDOSCOPY Care Teams Data Center Manager Relationship Specialty Start Date End Date Debbie Dacosta MD PCP - General Obstetrics and Gynecology 04/20/11
--- OUTSIDE RECORDS SUMMARY | 2024-08-04 12:26 | XMS_ITS | Clinical Summary ---
Author Organization [facility] Address [address] [place] [address] Care Team Providers Care Oyster Washer Name Role Phone Debbie Dacosta MD Primary Care Provider [phone] Source Comments [facility],non-[facility] Affiliates and Associated Physician Practices is amultiple site organization consisting of ambulatory clinics and hospital sitesin [place], [place]. This disclosure is being madepursuant to the Care Everywhere program and may not contain all information available regarding this patient. Last updated 18.[facility] Allergies No known active allergies Medications * Be aware that medications may not be up to date on this document. Alwaysverify current medications with the patient. Medication Sig Dispensed Refills Start Date End Date Status valsartan-hydrochloroth iazide (DIOVAN HCT) 160-12.5 MG tablet Take 1 Tab by mouth once daily. Active amLODIPine (NORVASC) 10 MG tablet Take 10 mg by mouth once daily. Active Active Problems Problem Noted Date Diagnosed Date Diverticulosis of colon 06/04/2011 Family History Medical History Relation Name Comments Cancer Father colon cancer Relation Name Status Comments Father colon cancer Social History Tobacco Use Types Packs/Day Years [...] Comments Blood Pressure 178/59 06/02/2011 9:47 AM DIGITAL ACCOUNT COORDINATOR Pulse 70 06/02/2011 9:47 AM DIGITAL ACCOUNT COORDINATOR Temperature - - Respiratory Rate 18 06/02/2011 9:47 AM DIGITAL ACCOUNT COORDINATOR Oxygen Saturation - - Inhaled Oxygen Concentration - - Weight 95.3 kg (210 lb) 06/01/2011 4:06 PM DIGITAL ACCOUNT COORDINATOR Height 167.6 cm (5' 6 ) 06/01/2011 4:06 PM DIGITAL ACCOUNT COORDINATOR Body Mass Index 33.89 06/01/2011 4:06 PM DIGITAL ACCOUNT COORDINATOR Plan of Treatment Health Maintenance Due Date Last Done Comments BONE DENSITY TESTING 1950 COLOGUARD (AGES 45-75) - COL ON CA SCREENING 1950 CT COLONOGRAPHY - COLON CA SCREENING 1950 FIT - COLON CA SCREENING 1950 FLEX SIG - COLON CA SCREENING 1950 LIPID TESTING 1950 MAMMOGRAM 1950 HEPATITIS C SCREENING 07/22/1968 DTAP/TDAP/TD VACCINES (1 - Tdap) 1969 PNEUMOCOCCAL VACCINE 50+ (1 of 1 - PCV) 2000 ZOSTER VACCINE (1 of 2) 2000 COLON MONITORING 06/02/2016 06/02/2011 Colorectal Cancer Screening 06/02/2016 COLONOSCOPY - COLON CA SCREENING 06/02/2021 06/02/19 12 COVID-19 VACCINE ( - 2023-2 5 season) 2024 INFLUENZA VACCINE (#1) 2024 DEPRESSION SCREENING 05/24/2024 Respiratory Syncytial Virus (RSV) Vaccine Pt: or over 60 yrs (1 - 1-dose 75+ series) 2025 HEPATITIS B VACCINE Aged Out No longe r eligible based on patient's age to complete this topic HIB VACCINE Aged Out No longer eligi ble based on patient's age to complete this topic HPV VACCINE Aged Out No longer eligi ble based on patient's age to complete this topic MENINGOCOCCAL (Group B) VACC INE SHARED DECISION-MAKING Aged Out No longer eligibl e based on patient's age to complete this topic MENINGOCOCCAL GROUPS A/C/Y/W VACCINE Aged Out No longer eligible b ased on patient's age to complete this topic Procedures Procedure Name Priority Date/Time Associated Diagnosis Comments ENDOSCOPY, COLON, SCREENING Routine 06/02/2011 10:46 AM DIGITAL ACCOUNT COORDINATOR from Last 3 Months or Most Recently Relevant to Health Maintenance Results * ENDOSCOPY, COLON, SCREENING (06/02/2011 10:46 AM DIGITAL ACCOUNT COORDINATOR) Narrative Transcriptions Meet Hogan MD - 06/02/2011 10:46 AM CST Meet Hogan MD GI PROCEDURE ORDERAB LES [facility] ENDOSCOPY from Last 3 Months or Most Recently Relevant to Health Maintenance Care Teams Oyster Washer Relationship Specialty Start Date End Date Debbie Dacosta MD PCP - General Obstetrics and Gynecology 04/20/11
--- OUTSIDE RECORDS SUMMARY | 2024-08-04 12:26 | XMS_ITS | Referral Summary ---
Author Organization [facility] Address [address] [place] [address] Care Team Providers Care Local Truck Driver Name Role Phone Debbie Dacosta MD Primary Care Provider [phone] Source Comments [facility],non-[facility] Affiliates and Associated Physician Practices is amultiple site organization consisting of ambulatory clinics and hospital sitesin [place], [place] and [place]. This disclosure is being madepursuant to the Care Everywhere program and may not contain all information available regarding this patient. Last updated 18.[facility] [employer] Allergies No known active allergies Medications * [...] Comments Blood Pressure 178/59 06/02/2011 9:47 AM DE ICER FINISHER Pulse 70 06/02/2011 9:47 AM DE ICER FINISHER Temperature - - Respiratory Rate 18 06/02/2011 9:47 AM DE ICER FINISHER Oxygen Saturation - - Inhaled Oxygen Concentration - - Weight 95.3 kg (210 lb) 06/01/2011 4:06 PM DE ICER FINISHER Height 167.6 cm (5' 6 ) 06/01/2011 4:06 PM DE ICER FINISHER Body Mass Index 33.89 06/01/2011 4:06 PM DE ICER FINISHER Plan of Treatment Not on file Procedures Procedure Name Priority Date/Time Associated Diagnosis Comments ENDOSCOPY, COLON, SCREENING Routine 06/02/2011 10:46 AM DE ICER FINISHER from Last 3 Months or Most Recently Relevant to Health Maintenance Results * ENDOSCOPY, COLON, SCREENING (06/02/2011 10:46 AM DE ICER FINISHER) Narrative Transcriptions Meet Hogan MD - 06/02/2011 10:46 AM CST Meet Hogan MD GI PROCEDURE ORDERAB LES [facility] ENDOSCOPY from Last 3 Months or Most Recently Relevant to Health Maintenance Care Teams Local Truck Driver Relationship Specialty Start Date End Date Debbie Dacosta MD PCP - General Obstetrics and Gynecology 04/20/11
[2024-08-04 13:49] LABS: Albumin Level 4.2 g/dL (3.5-5.1)
[2024-08-04 13:55] LABS: Urine Cotinine NEGATIVE
[2024-08-04 13:58] LABS: Partial Thromboplastin Time 28.2 Seconds (22.3-36.8)
[2024-08-04 14:18] LABS: Hemoglobin A1C 5.4 % (<5.7)
[2024-08-04 15:20] LABS: MRSA (PCR) NOT DETECTED (NOT DETECTE)
== END 2024-08-04 11:58 | disposition home or self-care (01) ==
LOC: ANHSURGERY 12:04
PROVIDERS: Anesthesiology; PCP Internal Medicine; Visit Provider Orthopaedic Surgery
DX: M17.11 Unilateral primary osteoarthritis, right knee (principal); N28.9 Disorder of kidney and ureter, unspecified; Z01.812 Encounter for preprocedural laboratory examination
CPT/HCPCS: 36415; 80307; 82040; 83036; 85730; 86850; 86900; 86901; 87641

== ENCOUNTER 2024-08-14 00:31 | Day surgery (SDC) | payer MEDICARE, SELFPAY ==
[2024-08-04 12:22] VITALS: BP 151/63; PULSE 70; RESP 16; TEMP 37.2; O2SAT 100; BMI 37.4
--- NOTE | 2024-08-04 12:39 | PC.NURSE ---
Addendum entered by Cheyanne Perkins RN 08/04/24 14:16: ARRIVE AT 6:00AM ON 08/14/24 FOR SURGERY AT 7:30AM. PT RELAYS UNDERSTANDING. Original Note: Report to the Outpatient Waiting Room, entrance under the green pavilion located off [facility], at time on date . Planned Procedure Time: .? Time changes happen often and if your time is changed the preop area will call you the afternoon before. - You and your visitor will be asked to self-screen and do not enter if you have any COVID symptoms. Please call surgeon if you need to reschedule. - A mask is optional within the hospital at this time. Patients may have clear liquids (water, carbonated beverages, clear teas, apple juice) until 3 hours prior to surgery (4:30AM) with a maximum of 20 ounces. - No food from midnight until time of surgery and no smoking, or chewing tobacco (or any form of nicotine). No chewing gum, candy or mints. Take only the following medications with a SIP of water on the morning of surgery: ____ALBUTEROL INHALER NEEDED DO NOT STOP ANY OF YOUR OTHER PRESCRIPTION MEDICATIONS PRIOR TO SURGERY EXCEPT THE FOLLOWING Hold all vitamins and supplements for 3 days per anesthesiologist.-LAST DOSE 08/20/24 Medications to discontinue per physician ____PATIENT CHECKING WITH DR POOLE FOR LONGER HOLD ON VITAMINS. Date to take last dose Please no make-up, nail swiss, hairspray, perfume, deodorant, or body powder the day of surgery.? No jewelry (including any body piercings) or valuables the day of surgery, leave them at home.? Please take a shower or bath the night before, or the morning of, surgery with an antibacterial soap.? Wear comfortable, loose fitting clothing.? - Jewelry must be removed prior to entering the operating room.? Rings and piercings that are not removed may be cut off. - The hospital will not accept responsibility for valuables.? - Please leave all valuables, including medications, at home the day of surgery. If you are going home after surgery, a licensed milk tanker driver must drive you home.? - NO public transportation without another adult if you receive anesthesia. - We recommend that an adult stay with you for 24 hours following discharge. - We also recommend that you do not drive, make important decision, drink alcoholic beverages, or take any drugs that were not prescribed by your health care provider for at least 24 hours after your discharge time. Follow any additional instructions given to you from your surgeon. Telephone instructions given to ____PATIENT and asked if any additional questions and then verbalized understanding. Patient advised to call surgeon office or pre surgery nurse liaison [phone] if any additional questions.
--- NOTE | 2024-08-10 07:07 | PM.IMHP ---
H&P: HPI History of Present Illness Date/Time: 08/10/24 07:07 Chief Complaint: Patient is knee pain right. She has cucb-lb-hrmg arthritis of her right knee. At this point she has failed conservative treatment like to consider knee replacement surgery. Will proceed per her request. Review of Systems Musculoskeletal: Musculoskeletal: Reports myalgias, Reports arthralgias, Reports joint swelling and Reports stiffness Neurologic: Reports abnormal gait [facility] Past Medical History Medical History Gastroesophageal reflux Allergic rhinitis Hypertension Surgical History Surgical History H/O section Acquired absence of both cervix and uterus Family History Family History Mother Cerebrovascular accident Father Family history of renal failure Social History Social History (Updated 07/25/24 @ 11:33 by Kate Seymour CMA) Smoking status: Never smoker Alcohol intake: never Substance use: never Substance use type: does not use Do You Feel Safe in your Home?: Yes Lack of Transportation: No Lack of Food: Never True Current Housing: I Have Housing Concerned About Future Housing: No Difficulty Paying Gas/Electric Bills: No Difficulty Paying for Meds: No Currently Unemployed: No Education: Associate Degree Difficulty w/ Childcare or Family Care: No Living arrangements: with family Additional living arrangements comments: [employer] Occupation/Education: retired Gender identity (if verbalized by the patient): Female Spiritual care concerns: No Meds Home Medications and Allergies Home Medications ?Medication ?Instructions ?Recorded ?Confirmed ?Type olmesartan 40 mg-amlodipine 5 1 tablet PO DAILY #90 tabs 09/02/23 08/04/24 Rx mg-hydrochlorothiazide 25 mg tablet acetaminophen 650 mg 1,300 mg PO .Q8 PRN pain 08/04/24 08/04/24 History tablet,extended release (8 Hour Pain Reliever) albuterol sulfate 90 mcg/actuation 1 inh inhalation Q4H PRN shortness 08/04/24 08/04/24 History aerosol inhaler of breath or wheezing cholecalciferol (vitamin D3) 25 1,000 unit PO 2XW 08/04/24 08/04/24 History mcg (1,000 unit) capsule cyanocobalamin (vitamin B-12) 1,000 mcg PO 2XW 08/04/24 08/04/24 History 1,000 mcg capsule fexofenadine 180 mg tablet 180 mg PO DAILY PRN sinus symptoms 08/04/24 08/04/24 History (Elizabeth Allergy) fish, borage, flaxseed oils-omega 1 cap PO 2XW 08/04/24 08/04/24 History 3,6,9 comb no.1 1,200 mg capsule (Rosholt 3-6-9) magnesium oxide 400 mg PO 2XW 08/04/24 08/04/24 History Allergies Allergy/AdvReac Type Severity Reaction Status Date / Time No Known Allergies Allergy Unknown Verified 08/04/24 12:11 Exam Narrative: On exam she has motion about 3 to 110?. She has varus deformity. She has grinding crepitus and pain with manipulation. She walks with an antalgic gait. Neurologically she is intact. Eyes: General: appearance normal, both eyes and all related structures Neck: Neck: supple Resp: Effort & Inspection: normal respiratory effort Cardio: Rate: regular rate Rhythm: regular rhythm Radiology Reports: Comments: Bret Marshall M.D. XRay Report Ambulatory Signed Patient: Karen Reyes 07/25/24 07:02 XR knee BI 3V Routine Interpretation: AP, lateral and skyline view both knees demonstrate levt-ii-xogg change medially with spurring and sclerosis. She has relatively large cyst medially on the tibia. Knee X-Ray 07/25/24 Orthopedics Result Report 07/25/24 Assessment and Plan Assessment and plan (1) Osteoarthritis of knees, bilateral: Code(s): M17.0 - Bilateral primary osteoarthritis of knee Status: Acute Assessment and Plan: Patient has stmo-xv-mcux arthritis of both knees. She has had extensive physical therapy including medicine therapy cortisone exercise and time. At this point she has failed conservative treatment like consider knee replacement surgery. I discussed risks, benefits, limitations, and alternatives in detail with the patient. Will proceed per her request.
[2024-08-14] VITALS (14 sets, daily range): BP systolic 132–173; BP diastolic 50–69; PULSE 65–98; RESP 12–20; TEMP 35.9–36.6; O2SAT 94–100; BMI 34.3
--- NOTE | ~2024-08-14 | XR_ITS ---
[id number] Ordering provider: Bret Marshall MD History: . POST RIGHT TOTAL KNEE ARTHROPLASTY . Comparison: None. FINDINGS: BONES: No acute fracture or dislocation. JOINT SPACES: Total knee arthroplasty. SOFT TISSUES: Postoperative changes in the skin and subcutaneous tissues. IMPRESSION: No acute osseous abnormality right knee. Total knee arthroplasty. Reviewed, dictated and finalized at location A.
--- OUTSIDE RECORDS SUMMARY | 2024-08-14 00:36 | XMS_ITS | Clinical Summary ---
Author Organization [facility] Address [address] [place] [address] Care Team Providers Care Glass Beveller Name Role Phone Debbie Dacosta MD Primary Care Provider [phone] Source Comments [facility],non-[facility] Affiliates and Associated Physician Practices is amultiple site organization consisting of ambulatory clinics and hospital sitesin [place], [place], [place] and [place]. This disclosure is being madepursuant to the Care Everywhere program and may not contain all information available regarding this patient. Last updated 18.[facility] Allergies No known active allergies Medications * [...] Comments Blood Pressure 178/59 06/02/2011 9:47 AM AGRICULTURAL CHEMICALS INSPECTOR Pulse 70 06/02/2011 9:47 AM AGRICULTURAL CHEMICALS INSPECTOR Temperature - - Respiratory Rate 18 06/02/2011 9:47 AM AGRICULTURAL CHEMICALS INSPECTOR Oxygen Saturation - - Inhaled Oxygen Concentration - - Weight 95.3 kg (210 lb) 06/01/2011 4:06 PM AGRICULTURAL CHEMICALS INSPECTOR Height 167.6 cm (5' 6 ) 06/01/2011 4:06 PM AGRICULTURAL CHEMICALS INSPECTOR Body Mass Index 33.89 06/01/2011 4:06 PM AGRICULTURAL CHEMICALS INSPECTOR Plan of Treatment Health Maintenance Due Date [...] ENDOSCOPY, COLON, SCREENING Routine 06/02/2011 10:46 AM AGRICULTURAL CHEMICALS INSPECTOR from Last 3 Months or Most Recently Relevant to Health Maintenance Results * ENDOSCOPY, COLON, SCREENING (06/02/2011 10:46 AM AGRICULTURAL CHEMICALS INSPECTOR) Narrative Transcriptions Meet Hogan MD - 06/02/2011 10:46 AM CST Meet Hogan MD GI PROCEDURE ORDERAB LES [facility] ENDOSCOPY from Last 3 Months or Most Recently Relevant to Health Maintenance Care Teams Glass Beveller Relationship Specialty Start Date End Date Debbie Dacosta MD PCP - General Obstetrics and Gynecology 04/20/11
--- OUTSIDE RECORDS SUMMARY | 2024-08-14 00:36 | XMS_ITS | Encounter Summary ---
Author Organization [facility] Address [address] [place] [address] Care Team Providers Care Golf Course Equipment Operator Name Role Phone Daniel Franz MD Primary Care Provider [phone] Reason for Visit * Reason Comments Lab (SCAN) Encounter Details Date Type Department Care Team (Latest Contact Info) Description 08/04/2024 Scan HEALTH INFO [facility] Scanned, [facility] Lab (SCAN) Social History Tobacco Use Types Packs/Day Years [...] Sex Assigned at Female 06/19/2024 7:39 AM SUPERVISOR ROSE GRADING Legal Sex Female 10:44 AM SUPERVISOR ROSE GRADING Gender Identity Female 06/19/2024 7:39 AM SUPERVISOR ROSE GRADING Sexual Orientation Straight 08/01/2024 8: 44 AM CDT documented as of this encounter Plan of Treatment Upcoming Encounters Date Type Department Care Team ( Contact Info) Description 12/18/2024 8:40 AM CDT Office Visit [facility] [address] [place] [address] Daniel Franz MD [address] [place] [address] documented as of this encounter Procedures Procedure Name Priority Date/Time Associated Diagnosis Comments OUTSIDE LAB (SCAN ORDER) Routine 08/04/2024 documented in this encounter Results * OUTSIDE LAB (08/04/2024) HGB A1C 5.4 % [facility] 08/04/2024 us Doc [facility] Scanned SCANNING Final Resu lt [facility] ON[facility] documented in this encounter Visit Diagnoses Not on filedocumented in this encounter Additional Health Concerns Assessment Noted Time PHQ-9 Depression Total Score: 2 06/20/19 25 9:08 AM SUPERVISOR ROSE GRADING documented as of this encounter Care Teams Golf Course Equipment Operator Relationship Specialty Start Date End Date Daniel Franz MD [address] [place] [address] PCP - General INTERNAL MEDICINE 03/27/24 documented as of this encounter
--- OUTSIDE RECORDS SUMMARY | 2024-08-14 00:36 | XMS_ITS | Clinical Summary ---
Author Organization [facility] Address [facility] [place] [address] Care Team Providers Care Electrical Superintendent Name Role Phone Daniel Franz MD Primary Care Provider [phone] Allergies No known active allergies Medications Olmesartan-amLODIP ine-HCTZ 40-5-25 MG TabIndications:Kaylin mana hypertension Take 1 tablet by mouth daily. 90 tablet 1 5 Active albuterol sulfate HFA 108 (90 Base) MCG/ACT inhalerIndications :Environmental allergies Inhale 1 puff into the lungs every 6 (six) hours as needed for Wheezing. 18 g 4 5 Active acetaminophen CR (TYLENOL 8 HOUR ARTHRITIS PAIN) 650 MG Tab CR 8 hr tabletIndications: Primary osteoarthritis of both knees Take 1 tablet (650 mg total) by mouth 3 (three) times daily as needed. 180 tablet 5 Active spironolactone (ALDACTONE) 50 MG tabletIndications: Primary hypertension Take 1 tablet (50 mg total) by mouth daily. 90 tablet 1 5 08/02/19 25 Discontinu ed(Other- Please enter comment in Notes field) Active Problems Problem Noted Date Diagnosed Date High blood pressure 01/22/2017 Overview (07/26/2024): Not sure of when diagnosed Diverticulosis of colon 06/04/2011 Encounters Date Type Department Care Team Description 08/09/2024 Telephone [facility] Medical Group Multispecialty Care - [address] [place] [address] Daniel Franz MD Other 08/08/2024 Telephone [facility] [address] [address] [address] [place] [address] Daniel Franz MD Lab Results 08/07/2024 [address] [facility] [address] [place] [address] Daniel Franz MD Surgical Clearance 08/04/2024 Scan [facility] Scanned, Doc [facility] Lab (SCAN) 08/04/2024 Scan [facility] Scanned, Doc [facility] Lab (SCAN) 08/04/2024 Travel 08/03/2024 Telephone [address] [address] [address] [place] [address] Daniel Franz MD Record Request 08/02/2024 Telephone [address] [address] [address] [place] [address] Daniel Franz MD Information 08/01/2024 8:40 AM CDT Office Visit [place] [address] [address] [address] [place] [address] Daniel Franz MD Surgical Clearance (Spironlactone is making her fatigued, nauseous, dizzy, and light headed ); Knee Pain 08/01/2024 Travel 07/26/2024 Telephone [address] [address] [address] [place] [address] Daniel Franz MD Lab Results 07/25/2024 [address] [address] [address] [place] [address] Daniel Franz MD Follow Up 07/22/2024 Telephone [address] [address] [address] [place] [address] Daniel Franz MD Medication Information 07/21/2024 11:30 AM CLOTH SPREADER Laboratory Only [facility] [address] [facility] [address] [place] [address] Daniel Franz MD 07/21/2024 Travel 07/14/2024 4:20 PM CLOTH SPREADER [facility] [address] [facility] [address] [place] [address] Daniel Franz MD Hypertension 07/14/2024 9:00 AM CLOTH SPREADER Allied Health[facility] [address] [facility] [address] [place] [address] Daniel Franz MD Allied Health Visit 07/14/2024 Telephone [address] [facility] [address] [place] [address] Daniel Franz MD Appointment Request 07/14/2024 Telephone [facility] [address] [facility] [address] [place] [address] Daniel Franz MD Appointment Request 07/04/2024 [address]phone [address] [facility] [address] [place] [address] Daniel Franz MD Record Request 06/22/2024 10:30 AM CLOTH SPREADER Allied Health/Nurse Visit [facility] [address] [facility] [address] [place] [address] Daniel Franz MD Allied Health Visit (UA) 06/22/2024 Travel 06/21/2024 Telephone [address] [facility] [address] [place] [address] Daniel Franz MD Other 06/20/2024 8:00 AM CLOTH SPREADER Office Visit [address] [address] [place] [address] Daniel Franz MD New Patient; Hypertension; Allergies 06/20/2024 - 06/20/2024 11:59 PM CLOTH SPREADER Hospital Encounter [facility] [place] [address] Daniel Franz MD Discharge Disposition: Home or Self Care (Routine Discharge) 06/20/2024 Telephone [facility] [address] [facility] [address] [place] [address] Daniel Franz MD Lab Order 06/20/2024 Telephone [facility] [address] [facility] [address] [place] [address] Daniel Franz MD Record Request 06/20/2024 Travel [...] Sex Assigned at Female 06/19/2024 7:39 AM CLOTH SPREADER Legal Sex Female 10:44 AM CLOTH SPREADER Gender Identity Female 06/19/2024 7:39 AM CLOTH SPREADER Sexual Orientation Straight 08/01/2024 8: 44 AM [...] Description 12/18/2024 8:40 AM CDT Office Visit [facility] Medical Group Multispecialty Care - [address] [address] [address] [place] [address] Daniel Franz MD [address] [place] [address] Health Maintenance Due Date Last Done Comments [...] exists Hepatitis C Completed 06/20/2024 PHQ-2 (Physician [place]) Completed 06/20/2024 Meningococcal B Vaccine Aged Out [...] Comments OUTSIDE LAB (SCAN ORDER) Routine 08/04/2024 OUTSIDE LAB (SCAN ORDER) 08/04/2024 OUTSIDE LAB (SCAN ORDER) 08/04/2024 OUTSIDE LAB (SCAN ORDER) 08/04/2024 CBC W/DIFF AUTOMATED Routine 08/01/2024 9:19 AM CDT Pre-operative clearance PROTHROMBIN TIME, VENOUS Routine 08/01/2024 9:19 AM CDT Pre-operative clearance Abnormal coagulation profile ELECTROCARDIOGRAM (NON MIDMARK ACQUIRED) Routine 08/01/2024 9:15 AM CDT Pre-operative clearance Procedure Note - 08/01/2024 9:15 AM CDTThis note is in progress. [facility] Medical Group [address] [place] [address] Test Date: 2024-08-01 Pat Name: KAREN GARBER Department: 171 Room: Gender: Female Centrifuge Operator: : [id number] Requested By: DANIEL FRANZ Order Number: [id number] Reading MD: DANIEL FRANZ Measurements Intervals [place] Rate: 61 P: 68 PA: 189 QRS: 24 QRSD: 82 T: 66 QT: 394 QTc: 398 Interpretive Statements SINUS RHYTHM COLLECTION VENOUS BLOOD VENIPUNCTURE Routine 08/01/2024 9:03 AM CDT Pre-operative clearance BASIC METABOLIC PANEL Routine 07/21/2024 11:43 AM CLOTH SPREADER Drug therapy COLLECTION VENOUS BLOOD VENIPUNCTURE Routine 07/21/2024 11:42 AM CLOTH SPREADER Drug therapy COLLECTION VENOUS BLOOD VENIPUNCTURE Routine 07/14/2024 4:53 PM CLOTH SPREADER Primary hypertension URINALYSIS AUTO DIP Routine 06/22/2024 Establishing care with new doctor, encounter for HEPATITIS C ANTIBODY Routine 06/20/2024 8:45 AM CLOTH SPREADER Establishing care with new doctor, encounter for General medical exam Drug therapy HEMOGLOBIN, GLYCOSYLATED Routine 06/20/2024 8:45 AM CLOTH SPREADER Establishing care with new doctor, encounter for General medical exam Drug therapy TSH W/REFLEX Routine 06/20/2024 8:45 AM CLOTH SPREADER Establishing care with new doctor, encounter for General medical exam Drug therapy LIPID PANEL Routine 06/20/2024 8:45 AM CLOTH SPREADER Establishing care with new doctor, encounter for General medical exam Drug therapy COMPREHENSIVE METABOLIC PANEL Routine 06/20/2024 8:45 AM CLOTH SPREADER Establishing care with new doctor, encounter for General medical exam Drug therapy CBC W/DIFF AUTOMATED Routine 06/20/2024 8:45 AM CLOTH SPREADER Establishing care with new doctor, encounter for General medical exam Drug therapy COLLECTION VENOUS BLOOD VENIPUNCTURE Routine 06/20/2024 8:38 AM CLOTH SPREADER Establishing care with new doctor, encounter for General medical exam Drug therapy MAMMOGRAM GENERIC (SCAN ORDER) 03/07/2024 from Last 3 Months or Most Recently Relevant to Health Maintenance Results * OUTSIDE LAB (08/04/2024) Only the most recent of4 resultswithin the time period is included. HGB A1C 5.4 % [facility] ONBASE 08/04/2024 us Doc Med Group Scanned SCANNING Final Resu lt HS ONBASE * PROTIME/INR, VENOUS (08/01/2024 9:19 AM CDT) PROTIME 9.8 9.3 - 11.6 SEC 08/01/2024 3:27 PM CDT [facility] INR 0.9 0.9 - 1.1 08/01/2024 3:27 PM CDT [facility] Comment: TREATMENT OR PROPHYLAXIS AGAINST: THERAPEUTIC RANGE (INR): VENOUS THROMBOSIS 2.0-3.0 PULMONARY EMBOLUS 2.0-3.0 MECHANICAL PROSTHETIC VALVES 2.5-3.5 08/01/2024 9:19 AM CDT Daniel Franz MD LABORATORY Final Result [facility] [address] [place] [address], [place] [phone] * (ABNORMAL) CBC W/DIFF AUTOMATED (08/01/2024 9:19 AM CDT) Only the most recent of2 resultswithin the time period is included. [facility] WBC 4.21 4.00 - 10.80 x10'3/uL 08/01/2024 3:32 PM CDT [facility] RBC 5.22 4.10 - 5.40 x10'6/uL 08/01/2024 3:32 PM CDT [facility] HGB 13.2 12.0 - 16.0 G/DL 08/01/2024 3:32 PM CDT [facility] HCT 43.8 36.0 - 47.0 % 08/01/2024 3:32 PM CDT [facility] MCV 83.9 78.0 - 100.0 FL 08/01/2024 3:32 PM CDT [facility] MCH 25.3(L) 27.0 - 31.0 PG 08/01/2024 3:32 PM CDT [facility] MCHC 30.1(L) 33.0 - 36.0 G/DL 08/01/2024 3:32 PM CDT -[facility] RDW 13.7 11.5 - 14.5 % 08/01/2024 3:32 PM CDT -[facility] PLT 255 150 - 350 x10'3/uL 08/01/2024 3:32 PM CDT -[facility] MPV 12.2(H) 7.4 - 10.4 FL 08/01/2024 3:32 PM CDT -[facility] DIFFERENTIAL TYPE AUTOMATED DIFFERENTIAL 08/01/2024 3:32 PM CDT [facility] NEUTROPHILS % 52.5 % 08/01/2024 3:32 PM CDT [facility] LYMPHOCYTES % 35.2 % 08/01/2024 3:32 PM CDT [facility] MONOCYTES % 7.1 % 08/01/2024 3:32 PM CDT [facility] EOSINOPHILS % 4.0 % 08/01/2024 3:32 PM CDT [facility] BASOPHILS % 1.0 % 08/01/2024 3:32 PM CDT [facility] IMMATURE GRANS % 0.2 % 08/01/2024 3:32 PM CDT -[facility] ABS. NEUTROPHILS 2.21 1.60 - 8.30 x10'3/uL 08/01/2024 3:32 PM CDT -[facility] ABS. LYMPHOCYTES 1.48 0.80 - 4.70 x10'3/uL 08/01/2024 3:32 PM CDT [facility] ABS. MONOCYTES 0.30 0.00 - 1.50 x10'3/uL 08/01/2024 3:32 PM CDT [facility] ABS. EOSINOPHILS 0.17 0.00 - 0.40 x10'3/uL 08/01/2024 3:32 PM CDT [facility] ABS. BASOPHILS 0.04 0.00 - 0.20 x10'3/uL 08/01/2024 3:[address] [facility] ABS. IMMATURE GRANULOCYTES 0.01 0.00 - 0.03 x10'3/uL 08/01/2024 3:32 PM CDT [facility] 08/01/2024 9:19 AM CDT Daniel Franz MD LABORATORY Final Result [facility] [address] [place] [address], * (ABNORMAL) BASIC METABOLIC PANEL (07/21/2024 11:43 AM CLOTH SPREADER) SODIUM S/P/B 140 136 - 145 MMOL/L 07/21/2024 7:36 PM CLOTH SPREADER [facility] POTASSIUM S/P/B 4.4 3.5 - 5.1 MMOL/L 07/21/2024 7:36 PM CLOTH SPREADER [facility] CHLORIDE S/P/B 103 98 - 107 MMOL/L 07/21/2024 7:36 PM CLOTH SPREADER [facility] CO2 33.0(H) 21 - 32 MMOL/L 07/21/2024 7:36 PM CLOTH SPREADER [facility] GLUCOSE 87 70 - 99 MG/DL 07/21/2024 7:36 PM [facility] BUN 21(H) 7 - 18 MG/DL 07/21/2024 7:36 PM CLOTH SPREADER [facility] CREATININE S/P/B 1.26(H) 0.55 - 1.02 MG/DL 07/21/2024 7:36 PM CLOTH SPREADER [facility] CALCIUM S/P/B 9.5 8.4 - 10.5 MG/DL 07/21/2024 7:36 PM [facility] ANION GAP 4.0(L) 5 - 15 MMOL/L 07/21/2024 7:[address] Comment:REFERENCE RANGE NOT ESTABLISHED OSMOLALITY (CALC) 292 MOSM/KG 025 7:36 PM CLOTH SPREADER [facility] Comment:REFERENCE RANGE NOT ESTABLISHED GFR ESTIMATE 45(L) >90 ML/MIN/1. 73 M2 07/21/2024 7:36 PM CLOTH SPREADER [facility] GFR NOTES GFR REFERENCE S: 07/21/2024 7:36 PM CLOTH SPREADER [facility] Comment: THE ESTIMATED GFR IS CALCULATED USING [...] <15 ml/min/1.73 m2 07/21/2024 11:4 3 AM CLOTH SPREADER Daniel Franz MD LABORATORY Final Result [facility] [address] [place] [address], * (ABNORMAL) URINALYSIS AUTO DIP (06/22/2024) COLOR (U) YELLOW YELLOW [address], [place] TRANSPARENCY CLEAR CLEAR [address], [place] GLUCOSE (U) NEGATIVE NEGATIVE MG/DL [address], [place] BILIRUBIN (U) NEGATIVE NEGATIVE MG[address], [place] KETONES MG/DL (U) NEGATIVE NEGATIVE MG/DL [address], [place] SPECIFIC GRAVITY (U) 1.020 1.001 - 1.035 [address], [facility] BLOOD (U) NEGATIVE NEGATIVE MG[address], [place] U PH 6.5 5.0 - 9.0 [address], [place] PROTEIN (U) NEGATIVE NEGATIVE mg/dL MG-[address], [place] UROBILINOGEN 1.0 0.2 - 1.0 EU/dL = mg/dL [address], [place] NITRITES NEGATIVE NEGATIVE MG/DL MG[address], [place] LEUKOCYTES (U) 1+ (SMALL)(A) NEGATIVE [address], [place] URINE SPECIMEN OBTAINED BY CLEAN CATCH PROCEDURE / Unknown 06/22/2024 us Daniel Frazn MD URINE ORDERABLES Final Result [facility], [place] [address] [facility] [address] [place] [address], [place] [phone] * TSH W/REFLEX (06/20/2024 8:45 AM CLOTH SPREADER) TSH 2.555 0.358 - 3.740 uIU/ML 06/20/2024 4:56 PM CLOTH SPREADER [facility] 06/20/2024 8:45 AM CLOTH SPREADER us Daniel Franz MD LABORATORY Final Result [facility] [address] [place] [address], [place] [phone] * (ABNORMAL) HEMOGLOBIN, GLYCOSYLATED (06/20/2024 8:45 AM CLOTH SPREADER) HGB A1C 5.4 4.5 - 6.2 % 06/20/2024 4:[address] [facility] ESTIMATED AVG GLUCOSE 108(H) 74 - 106 MG/DL 06/20/2024 4:44 PM CLOTH SPREADER [facility] 06/20/2024 8:45 AM CLOTH SPREADER Daniel Franz MD LABORATORY Final Result [facility] [address] [place] [address], * (ABNORMAL) COMPREHENSIVE METABOLIC PANEL (06/20/2024 8:45 AM CLOTH SPREADER) [facility] SODIUM S/P/B 142 136 - 145 MMOL/L 06/20/2024 4:56 PM CLOTH SPREADER [facility] POTASSIUM S/P/B 4.4 3.5 - 5.1 MMOL/L 06/20/2024 4:56 PM CLOTH SPREADER [facility] CHLORIDE S/P/B 102 98 - 107 MMOL/L 06/20/2024 4:56 PM [facility] CO2 31.7 21 - 32 MMOL/L 06/20/2024 4:56 PM [facility] GLUCOSE 105(H) 70 - 99 MG/DL 06/20/2024 4:56 PM [facility] BUN 27(H) 7 - 18 MG/DL 06/20/2024 4:56 PM [facility] CREATININE S/P/B 1.37(H) 0.55 - 1.02 MG/DL 06/20/2024 4:56 PM [facility] CALCIUM S/P/B 9.5 8.4 - 10.5 MG/DL 06/20/2024 4:56 PM CLOTH SPREADER [facility] BILIRUBIN TOTAL S/P/B 0.8 0.2 - 1.0 MG/DL 06/20/2024 4:56 PM [facility] ALKALINE PHOSPHATASE S/P/B 98 55 - 142 U/L 06/20/2024 4:56 PM CLOTH SPREADER [facility] AST 15 15 - 37 U/L 06/20/2024 4:56 PM [facility] ALT 14 14 - 59 U/L 06/20/2024 4:56 PM CLOTH SPREADER [facility] [place] TOTAL PROTEIN S/P/B 7.3 6.4 - 8.2 G/DL 06/20/2024 4:56 PM CLOTH SPREADER [facility] ALBUMIN S/P/B 3.8 3.4 - 5.0 G/DL 06/20/2024 4:56 PM CLOTH SPREADER [facility] [place] ANION GAP 8.3 5 - 15 MMOL/L 06/20/2024 4:56 PM CLOTH SPREADER [facility] Comment:REFERENCE RANGE NOT ESTABLISHED OSMOLALITY (CALC) 299 MOSM/KG 025 4:56 PM CLOTH SPREADER [facility] Comment:REFERENCE RANGE NOT ESTABLISHED GFR ESTIMATE 41(L) >90 ML/MIN/1. 73 M2 06/20/2024 4:[address] [facility] [place] GFR NOTES GFR REFERENCE S: 06/20/2024 4:56 PM CLOTH SPREADER [facility] Comment: THE ESTIMATED GFR IS CALCULATED USING [...] FAILURE: <15 ml/min/1.73 m2 06/20/2024 8:45 AM CLOTH SPREADER us Daniel Franz MD LABORATORY Final Result [facility] [place] [address] [place] [address], * (ABNORMAL) LIPID PANEL (06/20/2024 8:45 AM CLOTH SPREADER) CHOLESTEROL 175 <200 MG/DL 06/20/2024 4:56 PM CLOTH SPREADER [facility] TRIGLYCERIDES 72 <150 MG/DL 06/20/2024 4:56 PM [facility] HDL 54 >40 MG/DL 06/20/2024 4:56 PM CLOTH SPREADER [facility] LDL-C 107(H) <100 MG/DL 06/20/2024 4:56 PM [facility] VLDL CALCULATION 14 5 - 28 MG/DL 06/20/2024 4:56 PM CLOTH SPREADER [facility] CHOL/HDL RATIO 3.2 0.0 - 4.0 06/20/2024 4:56 PM [facility] LDL/HDL 2.0 0.41 - 2.13 06/20/2024 4:56 PM [facility] NON HDL CHOLESTEROL 121 <140 MG/DL 06/20/2024 4:56 PM CLOTH SPREADER [facility] 06/20/2024 8:45 AM CLOTH SPREADER us Daniel Franz MD LABORATORY Final Result [facility] [address] [place] [address], * HEPATITIS C ANTIBODY (06/20/2024 8:45 AM CLOTH SPREADER) HEPATITIS C AB NON-REACTI VE NON-REACT [place] 06/22/2024 6:39 PM CLOTH SPREADER [facility] Comment: ANTIBODIES TO HCV NOT DETECTED. DOES NOT EXCLUDE THE POSSIBILITY OF EXPOSURE TO HCV. 06/20/2024 8:45 AM CLOTH SPREADER us Daniel Franz MD LABORATORY Final Result [facility] [address] [place], [place] [address] [phone] * MAMMOGRAM GENERIC (SCAN ORDER) (03/07/2024) Anatomical Region Laterality Modality Other 03/07/2024 us Doc [facility] Scanned SCANNING Final Resu lt from Last 3 Months or Most Recently Relevant to Health Maintenance Insurance MEDICARE [facility] Care Teams Electrical Superintendent Relationship Specialty Start Date End Date Daniel Franz MD [address] [facility] [address] [place] [address] PCP - General INTERNAL MEDICINE 03/27/24
--- OUTSIDE RECORDS SUMMARY | 2024-08-14 00:36 | XMS_ITS | Encounter Summary ---
Author Organization [facility] Address [address] [place] [address] Care Team Providers Care Clutch Rebuilder Name Role Phone Daniel Franz MD Primary Care Provider [phone] Reason for Visit * Reason Comments Lab [...] Sex Assigned at Female 06/19/2024 7:39 AM ACQUISITION MARKETING MANAGER Legal Sex Female 10:44 AM ACQUISITION MARKETING MANAGER Gender Identity Female 06/19/2024 7:39 AM ACQUISITION MARKETING MANAGER Sexual Orientation Straight 08/01/2024 8: 44 AM CDT documented as of this encounter Plan of Treatment Upcoming Encounters Date Type Department Care Team ( Contact Info) Description 12/18/2024 8:40 AM CDT Office Visit [facility] Multispecialty [address] [place] [address] Daniel Franz MD [address] [address] documented as of this encounter Procedures Procedure Name Priority Date/Time Associated Diagnosis Comments OUTSIDE LAB (SCAN ORDER) 08/04/2024 OUTSIDE LAB (SCAN ORDER) 08/04/2024 OUTSIDE LAB (SCAN ORDER) 08/04/2024 documented in this encounter Results * OUTSIDE LAB (SCAN ORDER) (08/04/2024) 08/04/2024 [facility] Scanned SCANNING Final Resu lt * OUTSIDE LAB (SCAN ORDER) (08/04/2024) 08/04/2024 [facility] Scanned SCANNING Final Resu lt * OUTSIDE LAB (SCAN ORDER) (08/04/2024) 08/04/2024 [facility] Scanned SCANNING Final Resu lt documented in this encounter Visit Diagnoses Not on filedocumented in this encounter Additional Health Concerns Assessment Noted Time PHQ-9 Depression Total Score: 2 06/20/19 25 9:08 AM ACQUISITION MARKETING MANAGER documented as of this encounter Care Teams Clutch Rebuilder Relationship Specialty Start Date End Date Daniel Franz MD [address] [address] PCP - General INTERNAL MEDICINE 03/27/24 documented as of this encounter
[2024-08-14] MEDS: ACETAMINOPHEN 500 MG TABLET 1000 MG PO (06:43)
--- NOTE | 2024-08-14 06:55 | WPDHPUPDATE1 ---
History and Physical Update Update Date/Time: 08/14/24 06:55 History and Physical has been reviewed, including an updated exam of the patient. There are NO changes in the patient's condition. Risks, benefits, and alternatives have been discussed and questions answered. Patient agrees to proceed with procedure.
[2024-08-14] MEDS: TRANEXAMIC ACID 1,000MG/ISO100 1,000 MG/100 ML BAG 200 MG IVPB (06:56)
[2024-08-14] MEDS: VANCOMYCIN 1,250 MG/NS 250 ML BAG 166.67 MG IVPB (06:57)
[2024-08-14] MEDS: LACTATED RINGERS 1,000 ML 30 ML IV CONT ×2 (07:00→09:42)
--- NOTE | 2024-08-14 07:12 | WPDANESEPPF ---
Anes - Initial Pre Proc Eval Procedure: Operation Date: 08/14/24 07:30 Proposed Procedures p Right Total Knee Arthroplasty - Bret Marshall MD Date/Time: 08/14/24 07:12 Surgeon: Bret Marshall MD Pre Op Diagnosis: O A Rt Knee Patient Data Age: 74 Gender: F Height: 1.63 m Weight: 90.8 kg Last Vital Signs Temp 97.7 F 08/14/24 06:15 Pulse 78 08/14/24 06:15 Resp 18 08/14/24 06:15 BP 154/62 H 08/14/24 06:15 Pulse Ox 100 08/14/24 06:15 O2 Del Method Room Air 08/14/24 06:15 Allergies Allergy/AdvReac Type Severity Reaction Status Date / Time No Known Allergies Allergy Unknown Verified 08/14/24 07:00 Home Medications ?Medication ?Instructions ?Recorded ?Confirmed ?Type olmesartan 40 mg-amlodipine 5 1 tablet PO DAILY #90 tabs 09/02/23 08/14/24 Rx mg-hydrochlorothiazide 25 mg tablet acetaminophen 650 mg 1,300 mg PO .Q8 PRN pain 08/04/24 08/04/24 History tablet,extended release (8 Hour Pain Reliever) albuterol sulfate 90 mcg/actuation 1 inh inhalation Q4H PRN shortness 08/04/24 08/04/24 History aerosol inhaler of breath or wheezing cholecalciferol (vitamin D3) 25 1,000 unit PO 2XW 08/04/24 08/14/24 History mcg (1,000 unit) capsule cyanocobalamin (vitamin B-12) 1,000 mcg PO 2XW 08/04/24 08/14/24 History 1,000 mcg capsule fexofenadine 180 mg tablet 180 mg PO DAILY PRN sinus symptoms 08/04/24 08/14/24 History (Elizabeth Allergy) fish, borage, flaxseed oils-omega 1 cap PO 2XW 08/04/24 08/14/24 History 3,6,9 comb no.1 1,200 mg capsule (Purling 3-6-9) magnesium oxide 400 mg PO 2XW 08/04/24 08/14/24 History Patient hx anesthesia problems: none Family hx anesthesia problems: none Results Review: All pre-operative results and documents have been reviewed as part of the pre-operative evaluation. [facility] Past Medical History Medical History Gastroesophageal reflux Allergic rhinitis Hypertension Surgical History Surgical History H/O section Acquired absence of both cervix and uterus Family History Family History Mother Cerebrovascular accident Father Family history of renal failure Social History Social History Smoking status: Never smoker Alcohol intake: never Substance use: never Substance use type: does not use Do You Feel Safe in your Home?: Yes Lack of Transportation: No Lack of Food: Never True Current Housing: I Have Housing Concerned About Future Housing: No Difficulty Paying Gas/Electric Bills: No Difficulty Paying for Meds: No Currently Unemployed: No Education: Associate Degree Difficulty w/ Childcare or Family Care: No Living arrangements: with family [facility] Occupation/Education: retired Gender identity (if verbalized by the patient): Female Spiritual care concerns: No Anes - Eval Final PreProcedure Day of Procedure 08/14/24 07:12 Patient weight: obese Lungs: normal air movement Airway: Mallampati scale class II Neurological: alert and oriented Last oral intake: >/= 8 hours ASA classification: II Emergent: no Anesthetic plan: proceed Anesthesia type and monitoring: general LMA and standard monitoring Results Review: All pre-operative results and documents have been reviewed as part of the pre-operative evaluation. HTN, Obesity. EKG NSR. Informed Consent: The patient's anesthetic plan and its attendant risks and benefits were discussed with the patient/family/POA. Questions were solicited and answers provided to the satisfaction of the patient/family/POA.
[2024-08-14] MEDS: ceFAZolin 2 GM/D5W 50 ML 2 GM/50 ML BAG IVPB ×3 (07:35→22:55)
--- NOTE | 2024-08-14 07:37 | WPDANESPNB ---
Anes - Peripheral Nerve Block Date/Time: 08/14/24 07:37 I have discussed with the patient/family/POA the placement of a peripheral nerve block for post-operative pain management, including associated risks, benefits, complications, and side effects. Alternative methods of post-operative analgesia were detailed. Questions were solicited and answers provided to the satisfaction of the patient/family/POA. Time-Out: A pre-procedural Time-Out was completed immediately before starting the procedure and confirmed: Patient Identification, Site, Procedure, Patient Position and the Availability of Requisite Equipment. Clinical Indications: Acute post-operative pain management requested by the operative surgeon. Nerve Block Insertion Note Anes-nerve block: adductor canal Patient position: supine Skin prep: chlorhexidine Needle: 22 gauge, stimulating, insulated echogenic needle. Needle length: 80 mm Technique: ultrasound Injectate: other (Bupiv 0.5% 15 mls. ) Observations: tolerated well Complications: none Procedure start time:: 725 Procedure end time:: 0
[2024-08-14] MEDS: SODIUM CHLORIDE 0.9% IV 37.7 ML, MORPHINE SULFATE INJ (*CRX) 2 MG, ROPivacaine HCL 1% 2... INFILTRATE (08:04)
[2024-08-14] MEDS: TRANEXAMIC ACID 1,000 MG/10 ML AMPUL 1000 MG IV PUSH (08:57)
--- NOTE | 2024-08-14 09:18 | W.PM.PROC2 ---
Procedure Note - Detailed Date of Procedure 08/14/24 Pre-op Diagnosis Osteoarthritis RIGHT Knee Post-op Diagnosis Same Procedure Performed RIGHT Total Knee arthroplasty Surgeon Bret Marshall MD Academic Affairs Specialist Loki Dyer Anesthesia General Indications Pain and Arthritis Description of Procedure The patient was brought to operating room #7. A general anesthetic was administered. Placed on the operating table and sterilely prepped and draped in usual manner. A longitudinal incision was made. Tourniquet inflated to 300 mmHg for a total of 57 minutes. Dissection was carried down to the fascia. Medial parapatellar incision was made and the patella subluxated laterally. Patella cut from 22 to 15 mm. The tibia was cut perpendicular to the long axis and femur cut in 5 degrees of valgus. The components were trialed and the knee was noted to be stable with excellent motion. Extra care and trialing was done on the tibia was difficult to get the alignment way I wanted it. The soft tissues balanced, hemostasis obtained. All [address], 63 tibia, 62.5 femur, 34 mm patella, and 12 mm poly. Motion was 0-125 degrees with good stability in both flexion and extension. The wound was closed with #2 Vicryl, 2-0 Vicryl and alan. [employer] Estimated Blood Loss 200 Drains No Packing No Pathology None sent Complications No immediate complications Condition Stable Disposition PACU [facility] Billing Surgery - Charge Forward: Surgery Billing ([id number] Total Jnee)
[2024-08-14] MEDS: HYDROmorphone HCL INJ (*CRX) 1 MG/ML SYR 0.25 MG IV PUSH ×4 (09:51→10:17)
--- NOTE | 2024-08-14 11:08 | ADMGEN ---
This patient, Karen Reyes, was admitted to 3 [facility] Surg Room 309-01. Patient/family oriented to hospital policies and general routines including ID bracelet, bed and alarms, visiting hours, pain management, procedures, bathroom and other care routines, personal items, smoking policy, room service/diet, and visiting hours. Information on how to activate the Rapid Response Team has been discussed. Patient/Family are encouraged to report perceived risks to care and to ask questions if they do not understand what they are told or what they should do.
--- NOTE | 2024-08-14 12:18 | P.CONIM_ITS ---
Assessment and Plan Assessment and plan (1) Osteoarthritis of knees, bilateral: Code(s): M17.0 - Bilateral primary osteoarthritis of knee Status: Acute Assessment and Plan: Status post right knee arthroplasty 08/14/2024 Orthopedics is primary Management per Ortho PT OT evaluation pending Okay for diet xarelto for 12 days (2) Essential (primary) hypertension: Code(s): I10 - Essential (primary) hypertension Status: Acute Assessment and Plan: Her home medication is non formulary P.r.n. hydralazine for hypertension HPI Date of Consult Consult date: 08/14/24 Requesting Physician: Bret Marshall MD Primary Care Provider: Daniel Franz, Consult Narrative Narrative: Karen Reyes is a 74 year old female patient with past medical history of hypertension presents for and right knee total hemiarthroplasty. Patient seen after OR. She states that her leg is still numb from the nerve block, she is able wiggle her toes. She complains of a little stiffness in the leg. Denies nausea vomiting or shortness of breath. Review of Systems Review of Systems: 12 systems were reviewed and are negativ e except for as per HPI. [facility] Past Medical History Medical History Gastroesophageal reflux Allergic rhinitis Hypertension Surgical History Surgical History H/O section Acquired absence of both cervix and uterus Family History Family History Mother Cerebrovascular accident Father Family history of renal failure Social History Social History Smoking status: Never smoker Alcohol intake: never Substance use: never Substance use type: does not use Do You Feel Safe in your Home?: Yes Lack of Transportation: No Lack of Food: Never True Current Housing: Decline to Answer Concerned About Future Housing: No Difficulty Paying Gas/Electric Bills: No Difficulty Paying for Meds: No Currently Unemployed: No Education: Decline to Answer Difficulty w/ Childcare or Family Care: No Living arrangements: with family Additional living arrangements comments: [facility] Occupation/Education: retired Gender identity (if verbalized by the patient): Female Spiritual care concerns: No Meds Home Medications and Allergies Home Medications ?Medication ?Instructions ?Recorded ?Confirmed ?Type olmesartan 40 mg-amlodipine 5 1 tablet PO DAILY #90 tabs 09/02/23 08/14/24 Rx mg-hydrochlorothiazide 25 mg tablet acetaminophen 650 mg 1,300 mg PO .Q8 PRN pain 08/04/24 08/04/24 History tablet,extended release (8 Hour Pain Reliever) albuterol sulfate 90 mcg/actuation 1 inh inhalation Q4H PRN shortness 08/04/24 08/04/24 History aerosol inhaler of breath or wheezing cholecalciferol (vitamin D3) 25 1,000 unit PO 2XW 08/04/24 08/14/24 History mcg (1,000 unit) capsule cyanocobalamin (vitamin B-12) 1,000 mcg PO 2XW 08/04/24 08/14/24 History 1,000 mcg capsule fexofenadine 180 mg tablet 180 mg PO DAILY PRN sinus symptoms 08/04/24 08/14/24 History (Elizabeth Allergy) fish, borage, flaxseed oils-omega 1 cap PO 2XW 08/04/24 08/14/24 History 3,6,9 comb no.1 1,200 mg capsule ([place] 3-6-9) magnesium oxide 400 mg PO 2XW 08/04/24 08/14/24 History Allergies Allergy/AdvReac Type Severity Reaction Status Date / Time No Known Allergies Allergy Unknown Verified 08/14/24 11:13 Vital Signs Vital Signs - 24 hr 08/14/24 06:15 08/14/24 09:42 08/14/24 09:55 Temperature 97.7 F 97.2 F L Pulse Rate 78 98 77 Respiratory Rate 18 20 12 Blood Pressure 154/62 H 173/56 H 133/69 Pulse Oximetry 100 99 100 Oxygen Delivery Room Air Simple Face Mask Simple Face Mask Oxygen Flow Rate 8 8 08/14/24 10:10 08/14/24 10:25 08/14/24 10:40 Temperature Pulse Rate 77 74 79 Respiratory Rate 14 14 14 Blood Pressure 144/64 H 150/55 H 150/65 H Pulse Oximetry 99 95 94 Oxygen Delivery Room Air Room Air Room Air Oxygen Flow Rate 08/14/24 10:55 08/14/24 10:57 08/14/24 11:12 Temperature 97.1 F L 96.7 F L 96.6 F L Pulse Rate 74 75 69 Respiratory Rate 12 12 12 Blood Pressure 152/61 H 148/62 H 150/57 H Pulse Oximetry 95 100 98 Oxygen Delivery Room Air Oxygen Flow Rate 08/14/24 11:42 Temperature 96.8 F L Pulse Rate 65 Respiratory Rate 12 Blood Pressure 132/50 L Pulse Oximetry 100 Oxygen Delivery Oxygen Flow Rate Exam Narrative: General: well appearing, appears stated age. HEENT: normocephalic, atraumatic. Mucous membranes moist. EOMI, PERRLA, bilateral sclera anicteric, no conjunctival injection. Neck supple without JVD, lymphadenopathy, or bruit. Respiratory: clear to ascultation bilaterally. No rales/rhonic/wheezes. Cardiovascular: Regular rate and rhythm, normal S1-S2 upon ascultation. No murmurs, rubs, or clicks. PMI is nondisplaced, capillary refill less than 3 second. Abdomen: Soft, round, no pulsatile masses, nondistended and nontender. No rebound, no guarding. No CVA tenderness, no hepatosplenomegaly. Bowel sounds present to all four quadrants. No high pitch or tinkling sounds, resonant to percussion. Extremities: No cyanosis, clubbing, or edema present. Pulses are palpable 2/2. Right lower extremity with surgical dressing Neuro: Alert and orientated x 4. PERRLA. Cranial nerves 2-12 intact without focal deficit. Skin: Warm, dry, and intact, without rash, erythema, or lesion. Psych: pleasant, cooperative, normal speech, normal affect, no hallucinations, no dysarthia Quality VTE Prophylaxis VTE prophylaxis: mechanical ordered and pharmacologic ordered Hospitalist [facility] Advance Care Plan I have confirmed that the patient's Advanced Care Plan is present, code status is documented, or surrogate decision maker is listed in patient medical record.: Yes Medication Reconciliation I have utilized all available resources to obtain, update and review the patients current medications (includes all prescriptions, OTC, herbals, cannabi s, and nutritional supplements).: Yes
[2024-08-14] MEDS: HYDROcodone/acetaminophen (*CRX) 5-325 MG TABLET 1 TAB PO ×2 (12:39→17:28)
[2024-08-14] MEDS: SODIUM CHLORIDE 0.9% IV 1,000 ML 125 ML IV CONT (12:39)
[2024-08-14] MEDS: PROCHLORPERAZINE EDISYLATE 10 MG/2 ML VIAL IV PUSH (14:54)
[2024-08-14] MEDS: SENNA/DOCUSATE SODIUM TABLET 2 TAB PO (17:28)
[2024-08-14] MEDS: SCOPOLAMINE 1 MG PATCH 1 PATCH TRANSDERM (17:28)
[2024-08-14] MEDS: RIVAROXABAN 10 MG TABLET PO (17:28)
[2024-08-15 00:25] VITALS: BP 142/54; PULSE 77; RESP 16; TEMP 36.6; O2SAT 96
[2024-08-15] MEDS: HYDROcodone/acetaminophen (*CRX) 5-325 MG TABLET 1 TAB PO (01:05)
[2024-08-15 04:42] VITALS: BP 134/56; PULSE 67; RESP 20; TEMP 36.7; O2SAT 100
[2024-08-15 06:15] LABS: Basophils Percent Auto 0.7 % (0.2-1.2); Eosinophils Percent Auto 0.7 % (0-4.4); Hematocrit 32.5 % (37.0-47.0); Hemoglobin 9.9 g/dL (12.0-15.0); Immature Granulocyte Absolute 0.04 K/mm3 (0.00-0.031); Immature Granulocyte Percent A 0.7 % (0-0.5); Lymphocytes Absolute Auto 1.57 K/mm3 (0.9-3.2); Lymphocytes Percent Auto 25.9 % (18.3-44.2); Mean Corpuscular HGB Conc 30.5 g/dl (32-36); Mean Corpuscular Hemoglobin 25.4 pg (26-34); Mean Corpuscular Volume 83.5 fl (80-100); Mean Platelet Volume 11.1 fl (7.4-10.4); Monocytes Absolute Auto 0.8 K/mm3 (0.1-0.6); Monocytes Percent Auto 12.5 % (2.6-8.5); Neutrophils Absolute Auto 3.6 K/mm3 (1.3-6.7); Neutrophils Percent Auto 59.5 % (45.5-73.1); Platelet Count Result 180 k/mm3 (150-375); Red Blood Count 3.89 M/mm3 (4.2-5.4); Red Cell Distribution Width 13.9 % (11.5-14.5); White Blood Count 6.1 K/mm3 (4.5-10.0)
[2024-08-15 06:30] LABS: Anion Gap 7 mmol/L (4-12); Blood Urea Nitrogen 26 mg/dL (7-17); Calcium 8.3 mg/dL (8.4-10.2); Carbon Dioxide 26 mmol/L (22-30); Chloride 104 mmol/L (98-107); Estimated CRCL calculation 37 ml/min; Estimated Glomerular Filt Rate 39; Glucose 99 mg/dL (65-110); Potassium 3.6 mmol/L (3.4-5.0); Sodium 137 mmol/L (137-145)
[2024-08-15] MEDS: ceFAZolin 2 GM/D5W 50 ML 2 GM/50 ML BAG IVPB (06:34)
[2024-08-15] MEDS: HYDROcodone/acetaminophen (*CRX) 7.5-325 MG TABLET 1 TAB PO ×2 (06:41→12:33)
--- NOTE | 2024-08-15 07:24 | P.PNOP_ITS ---
Progress Note: A&P Assessment and Plan (1) FHx: total knee replacement: Code(s): Z82.69 - Family history of other diseases of the musculoskeletal system and connective tissue Status: Acute Assessment and Plan: Station is status post right total knee arthroplasty. She has done well postoperatively and can be dismissed. Dismissed medication [place] and Xarelto. She should resume regular medications and diet. Follow up 10 to 14 days for sutures out. Subjective Subjective Date/Time Seen: 08/15/24 07:24 Post Op day: 1 Principal diagnosis: Status post total knee arthroplasty for osteoarthritis right knee. Review of Systems Review of Systems: 12 systems were reviewed and are negativ e except for as per HPI. Exam Narrative: Patient is able to wiggle toes. Neurologically she appears to be intact. The dressing is clean and dry. He is walking with a walker. Objective Data Vital Signs Vital Signs: Vital Signs - 24 hr 08/14/24 09:42 08/14/24 09:55 08/14/24 10:10 Temperature 97.2 F L Pulse Rate 98 77 77 Respiratory Rate 20 12 14 Blood Pressure 173/56 H 133/69 144/64 H Pulse Oximetry 99 100 99 Oxygen Delivery Simple Face Mask Simple Face Mask Room Air Oxygen Flow Rate 8 8 08/14/24 10:25 08/14/24 10:40 08/14/24 10:55 Temperature 97.1 F L Pulse Rate 74 79 74 Respiratory Rate 14 14 12 Blood Pressure 150/55 H 150/65 H 152/61 H Pulse Oximetry 95 94 95 Oxygen Delivery Room Air Room Air Room Air Oxygen Flow Rate 08/14/24 10:57 08/14/24 11:12 08/14/24 11:42 Temperature 96.7 F L 96.6 F L 96.8 F L Pulse Rate 75 69 65 Respiratory Rate 12 12 12 Blood Pressure 148/62 H 150/57 H 132/50 L Pulse Oximetry 100 98 100 Oxygen Delivery Oxygen Flow Rate 08/14/24 12:42 08/14/24 13:30 08/14/24 14:34 Temperature 97.3 F L Pulse Rate 67 Respiratory Rate 12 Blood Pressure 150/62 H Pulse Oximetry 100 Oxygen Delivery Room Air Room Air Oxygen Flow Rate 08/14/24 16:42 08/14/24 20:00 08/14/24 20:42 Temperature 98 F 97.7 F Pulse Rate 73 73 74 Respiratory Rate 12 12 16 Blood Pressure 138/54 L 143/63 H Pulse Oximetry 100 100 98 Oxygen Delivery Room Air Oxygen Flow Rate 08/15/24 00:25 08/15/24 04:42 Temperature 97.9 F 98.1 F Pulse Rate 77 67 Respiratory Rate 16 20 Blood Pressure 142/54 H 134/56 L Pulse Oximetry 96 100 Oxygen Delivery Oxygen Flow Rate Intake/Output Intake/Output: Intake & Output 08/12/24 08/13/24 08/14/24 08/15/24 23:59 23:59 23:59 23:59 Intake Total 1900 Output Total 300 Balance 1600 Meds/Results Medications: Active Medications Generic Name Dose Route Start Last Admin Trade Name Freq PRN Reason Stop Dose Admin Hydrocodone Bitart/Acetaminophen 1 tab 08/14/24 11:00 08/15/24 01:05 Hydrocodone/Acetaminophen (*Crx) 5-325 Mg Tablet PO 1 tab Q4H PRN Administration Pain Rated 4-6 Hydrocodone Bitart/Acetaminophen 1 tab 08/14/24 11:00 08/15/24 06:41 Hydrocodone/Acetaminophen (*Crx) 7.5-325 Mg Tablet PO 1 tab Q4H PRN Administration Pain Rated 7-10 Celecoxib 200 mg 08/14/24 17:00 08/14/24 17:41 Celecoxib 200 Mg Capsule PO Not Given BIDWM RON Cyclobenzaprine HCl 10 mg 08/14/24 11:00 Cyclobenzaprine Hcl 10 Mg Tablet PO Q8H PRN Spasms Diphenhydramine HCl 25 mg 08/14/24 11:00 Diphenhydramine Hcl Inj 50 Mg/Ml Vial IV PUSH Q6H PRN Itching Hydralazine HCl 10 mg 08/14/24 21:19 Hydralazine Hcl 20 Mg/Ml Vial IV PUSH Q8H PRN Blood Pressure - High Hydromorphone HCl 1 mg 08/14/24 11:00 Hydromorphone Hcl Inj (*Crx) 1 Mg/Ml Syr IV PUSH Q2H PRN Breakthrough Pain Rated 7-10 or NPO Hydromorphone HCl 0.5 mg 08/14/24 11:00 Hydromorphone Hcl Inj (*Crx) 1 Mg/Ml Syr IV PUSH Q2H PRN Breakthrough Pain Rated 4-6 or NPO Cefazolin Sodium 2 gm in 50 mls @ 100 mls/hr 08/14/24 15:30 08/15/24 06:34 Ancef 2 Gm/D5w 50 Ml IVPB 08/15/24 07:59 100 mls/hr Q8H RON Administration Ibuprofen 800 mg in 200 mls @ 400 mls/hr 08/14/24 11:00 Caldolor 800 Mg/200 Ml IVPB Q6H PRN Breakthrough Pain Rated 1-3 or NPO Naloxone HCl 0.1 mg 08/14/24 11:00 Naloxone Hcl 0.4 Mg/Ml Vial IV PUSH Q2M PRN Opiate Reversal Ondansetron HCl 4 mg 08/14/24 11:00 Ondansetron Inj 4 Mg/2 Ml Vial IV PUSH Q4H PRN Nausea And Vomiting Polyethylene Glycol 17 gm 08/15/24 09:00 Polyethylene Glycol 3350 17 Gm Powd.Pack PO QAM RON Prochlorperazine Edisylate 10 mg 08/14/24 14:42 08/14/24 14:54 Prochlorperazine Edisylate 10 Mg/2 Ml Vial IV PUSH 10 mg Q6H PRN Administration Nausea And Vomiting Rivaroxaban 10 mg 08/14/24 17:00 08/14/24 17:28 Rivaroxaban 10 Mg Tablet PO 08/25/24 17:01 10 mg DAILY@17 [facility] Administration Senna/Docusate Sodium 2 tab 08/14/24 17:00 08/14/24 17:28 Senna/Docusate Sodium Tablet PO 2 tab BID RON Administration Tramadol HCl 50 mg 08/14/24 11:00 Tramadol Hcl (*Crx) 50 Mg Tablet PO Q4H PRN Pain Rated 1-3 Radiology Results: ITS Impressions Knee X-Ray 08/14/24 10:54 IMPRESSION: No acute osseous abnormality right knee. Total knee arthroplasty. Labs Labs: Laboratory Results - last 24 hr 08/15/24 05:53 WBC 6.1 RBC 3.89 L Hgb 9.9 L Hct 32.5 L MCV 83.5 MCH 25.4 L MCHC 30.5 L RDW 13.9 Plt Count 180 MPV 11.1 H Immature Gran % (Auto) 0.7 H Neut % (Auto) 59.5 Lymph % (Auto) 25.9 [place] % (Auto) 12.5 H Eos % (Auto) 0.7 Baso % (Auto) 0.7 Lymph # (Auto) 1.57 [place] # (Auto) 0.8 H Eos # (Auto) 0.0 Baso # (Auto) 0.0 Abs Immat Gran (auto) 0.04 H Absolute Neuts (auto) 3.6 Absolute Nucleated RBC 0.000 Nucleated RBC % 0.0 Sodium 137 Potassium 3.6 Chloride 104 Carbon Dioxide 26 Anion Gap 7 BUN 26 H D Creatinine 1.32 H Estim Creat Clear Calc 37 Estimated GFR 39 L Glucose 99 Calcium 8.3 L
[2024-08-15 08:42] VITALS: BP 137/49; PULSE 77; RESP 16; TEMP 36.1; O2SAT 98
[2024-08-15] MEDS: SENNA/DOCUSATE SODIUM TABLET 2 TAB PO (09:11)
[2024-08-15] MEDS: polyethylene glycoL 3350 17 GM POWD.PACK PO (09:11)
[2024-08-15] MEDS: HYDROmorphone HCL INJ (*CRX) 1 MG/ML SYR IV PUSH (09:51)
== END 2024-08-15 13:40 | disposition home or self-care (01) ==
LOC: ANHSURGERY 06:03 → ANH3MEDSUR 11:03
PROVIDERS: PCP Internal Medicine; Visit Provider Orthopaedic Surgery
PROC: (CPT 27447; principal; 2024-08-14 07:30)
DX: M17.11 Unilateral primary osteoarthritis, right knee (principal); G89.18 Other acute postprocedural pain; I10 Essential (primary) hypertension; K21.9 Gastro-esophageal reflux disease without esophagitis; E66.9 Obesity, unspecified; Z68.34 Body mass index [BMI] 34.0-34.9, adult; Z79.51 Long term (current) use of inhaled steroids; Z98.890 Other specified postprocedural states; Z90.710 Acquired absence of both cervix and uterus; Z82.49 Family history of ischemic heart disease and other diseases of the circulatory system
CPT/HCPCS: 64447; 27447; 36415; 73560; 80048; 85025; 97110; 97116; 97161; 97165; 97530; 97535; A9270; C1713; C1776; J0171; J0690; J0780; J1100; J1171; J1885; J2003; J2250; J2270; J2405; J2704; J2795; J3010; J3370; J7030; J7120

== ENCOUNTER 2024-09-22 00:37 | Day surgery (SDC) | payer MEDICARE, SELFPAY ==
--- NOTE | 2024-09-19 12:41 | PM.IMHP ---
H&P: HPI History of Present Illness Date/Time: 09/19/24 12:41 Chief Complaint: Patient underwent total knee arthroplasty 5 weeks ago and returns with a stiff knee. She has motion from about 10 to 100?. She does have pain when she walks she would like to consider manipulation to see if she can obtain more motion. Review of Systems Review of Systems: 12 systems were reviewed and are negative except for as per HPI. [facility] Past Medical History Medical History Gastroesophageal reflux Allergic rhinitis Hypertension Surgical History Surgical History H/O section Acquired absence of both cervix and uterus Family History Family History Mother Cerebrovascular accident Father Family history of renal failure Social History Social History (Updated 09/19/24 @ 08:34 by Kate Seymour CMA) Smoking status: Never smoker Alcohol intake: never Substance use: never Substance use type: does not use Current Housing: Decline to Answer Concerned About Future Housing: Decline to Answer Difficulty Paying Gas/Electric Bills: Decline to Answer Difficulty Paying for Meds: Decline to Answer Currently Unemployed: Decline to Answer Education: Decline to Answer Difficulty w/ Childcare or Family Care: Decline to Answer Living arrangements: with family Additional living arrangements comments: [employer] Occupation/Education: retired Gender identity (if verbalized by the patient): Female Spiritual care concerns: No Meds Home Medications and Allergies Home Medications ?Medication ?Instructions ?Recorded ?Confirmed ?Type olmesartan 40 mg-amlodipine 5 1 tablet PO DAILY #90 tabs 09/02/23 09/19/24 Rx mg-hydrochlorothiazide 25 mg tablet acetaminophen 650 mg 1,300 mg PO .Q8 PRN pain 08/04/24 09/19/24 History tablet,extended release (8 Hour Pain Reliever) albuterol sulfate 90 mcg/actuation 1 inh inhalation Q4H PRN shortness 08/04/24 09/19/24 History aerosol inhaler of breath or wheezing cholecalciferol (vitamin D3) 25 1,000 unit PO 2XW 08/04/24 09/19/24 History mcg (1,000 unit) capsule cyanocobalamin (vitamin B-12) 1,000 mcg PO 2XW 08/04/24 09/19/24 History 1,000 mcg capsule fexofenadine 180 mg tablet 180 mg PO DAILY PRN sinus symptoms 08/04/24 09/19/24 History (Elizabeth Allergy) fish, borage, flaxseed oils-omega 1 cap PO 2XW 08/04/24 09/19/24 History 3,6,9 comb no.1 1,200 mg capsule ([place] 3-6-9) magnesium oxide 400 mg PO 2XW 08/04/24 09/19/24 History prednisone 10 mg tablet 10 mg PO BID 10 days #20 tabs 09/19/24 09/19/24 Rx Allergies Allergy/AdvReac Type Severity Reaction Status Date / Time No Known Allergies Allergy Unknown Verified 09/19/24 07:11 Exam Narrative: On exam her incision is clean. She has motion from about 10 to 100 ?. She has grinding crepitus and pain with manipulation. Neurologically she is intact. She walks with an antalgic gait. Eyes: General: appearance normal, both eyes and all related structures Neck: Neck: supple Cardio: Rate: regular rate Rhythm: regular rhythm Assessment and Plan Assessment and plan (1) Arthrofibrosis of total knee replacement: Code(s): T84.82XA - Fibrosis due to internal orthopedic prosthetic devices, implants and grafts, initial encounter Status: Acute Assessment and Plan: Patient is status post total knee arthroplasty right. She has developed arthrofibrosis. She stiff and has pain with motion and activity. Is not obtained her full motion. She would like to consider manipulation. I have discussed with the patient and her in detail. Risk, benefits, limitations, and alternatives were reviewed. Will proceed per her request. Of note is we did discuss the possibility of fracture although unlikely. (2) History of knee replacement procedure of right knee: Code(s): Z96.651 - Presence of right artificial knee joint Status: Acute
--- NOTE | 2024-09-20 11:20 | PC.NURSE ---
Report to the Outpatient Waiting Room, entrance under the green pavilion located off [facility], at time __7 am on date __09/22/24 . Planned Procedure Time: ___9am .? Time changes happen often and if your time is changed the preop area will call you the afternoon before. - You and your visitor will be asked to self-screen and do not enter if you have any COVID symptoms. Please call surgeon if you need to reschedule. - A mask is optional within the hospital at this time. Patients may have clear liquids (water, carbonated beverages, clear teas, apple juice) until 3 hours prior to surgery ( 6am )with a maximum of 20 ounces. - No food from midnight until time of surgery and no smoking, or chewing tobacco (or any form of nicotine). No chewing gum, candy or mints. Take only the following medications with a SIP of water on the morning of surgery: ___prednisone,inhaler if needed DO NOT STOP ANY OF YOUR OTHER PRESCRIPTION MEDICATIONS PRIOR TO SURGERY EXCEPT THE FOLLOWING Hold all vitamins and supplements for 3 days per anesthesiologist.Last dose 09/19/24 per pt Medications to discontinue per physician none Please no make-up, nail armenian, hairspray, perfume, deodorant, or body powder the day of surgery.? No jewelry (including any body piercings) or valuables the day of surgery, leave them at home.? Please take a shower or bath the night before, or the morning of, surgery with an antibacterial soap.? Wear comfortable, loose fitting clothing.? Children are encouraged to wear pajamas. - Jewelry must be removed prior to entering the operating room.? Rings and piercings that are not removed may be cut off. - The hospital will not accept responsibility for valuables.? - Please leave all valuables, including medications, at home the day of surgery. If you are going home after surgery, a licensed tow bar driver must drive you home.? - NO public transportation without another adult if you receive anesthesia. - We recommend that an adult stay with you for 24 hours following discharge. - We also recommend that you do not drive, make important decision, drink alcoholic beverages, or take any drugs that were not prescribed by your health care provider for at least 24 hours after your discharge time. For Pediatric surgeries, we recommend two adults accompany the child home. Follow any additional instructions given to you from your surgeon. Telephone instructions given to ___patient and asked if any additional questions and then verbalized understanding. Patient advised to call surgeon office or pre surgery nurse liaison [phone] if any additional questions.
[2024-09-20 11:27] VITALS: BMI 32.8
--- OUTSIDE RECORDS SUMMARY | 2024-09-22 00:40 | XMS_ITS | Clinical Summary ---
Author Organization [facility] Address [address] [place] [address] Care Team Providers Care Mailroom Clerk Name Role Phone Debbie Dacosta MD Primary Care Provider [phone] Source Comments [facility] Affiliates and Associated Physician Practices is amultiple site organization consisting of ambulatory clinics and hospital sitesin [place], [place], [place] and [place]. This disclosure is being madepursuant to the Care Everywhere program and may not contain all information available regarding this patient. Last updated 18.[facility] [employer] Allergies No known active allergies Medications * Be aware that medications may not be up to date on this document. Alwaysverify current medications with the patient. valsartan-hydroc hlorothiazide (DIOVAN HCT) 160-12.5 MG tablet Take 1 [...] drink = 0.6 oz pur e alcohol) Comments Unknown Sex and Gender Information Value Date Recorded Sex Assigned at Not on file Legal Sex Female 6:29 AM HR INTERNSHIP Gender Identity Not on file Sexual Orientation Not on file Last Filed Vital Signs Vital Sign Reading Time Taken Comments Blood Pressure 178/59 06/02/2011 9:47 AM HR INTERNSHIP Pulse 70 06/02/2011 9:47 AM HR INTERNSHIP Temperature - - Respiratory Rate 18 06/02/2011 9:47 AM HR INTERNSHIP Oxygen Saturation - - Inhaled Oxygen Concentration - - Weight 95.3 kg (210 lb) 06/01/2011 4:06 PM HR INTERNSHIP Height 167.6 cm (5' 6 ) 06/01/2011 4:06 PM HR INTERNSHIP Body Mass Index 33.89 06/01/2011 4:06 PM HR INTERNSHIP Plan of Treatment Health Maintenance Due Date [...] VACCINE ( - 2023-2 5 season) 2024 DEPRESSION SCREENING 05/24/2024 INFLUENZA VACCINE (Season Ended) 2025 Respiratory Syncytial Virus (RSV) Vaccine Pt: or [...] ENDOSCOPY, COLON, SCREENING Routine 06/02/2011 10:46 AM HR INTERNSHIP from Last 3 Months or Most Recently Relevant to Health Maintenance Results * ENDOSCOPY, COLON, SCREENING (06/02/2011 10:46 AM HR INTERNSHIP) Narrative Transcriptions Meet Hogan MD - 06/02/2011 10:46 AM CST us Meet Hogan MD GI PROCEDURE ORDERABLES Final Re sult [facility] ENDOSCOPY from Last 3 Months or Most Recently Relevant to Health Maintenance Insurance [employer] Care Teams Mailroom Clerk Relationship Specialty Start Date End Date Debbie Dacosta MD PCP - General Obstetrics and Gynecology 04/20/11
--- OUTSIDE RECORDS SUMMARY | 2024-09-22 00:40 | XMS_ITS | Encounter Summary ---
Author Organization [facility] Address [address] [place] [address] Care Team Providers Care Textile Chemist Name Role Phone Daniel Franz MD Primary Care Provider [phone] Encounter Details Date Type Department Care Team (Latest Contact Info) Description 09/19/2024 Scan HEALTH INFO SRVCS Scanned, Doc Med Group Social History Tobacco Use Types Packs/Day Years [...] Sex Assigned at Female 06/19/2024 7:39 AM VIRTUAL REALITY SPECIALIST Legal Sex Female 10:44 AM VIRTUAL REALITY SPECIALIST Gender Identity Female 06/19/2024 7:39 AM VIRTUAL REALITY SPECIALIST Sexual Orientation Straight 08/01/2024 8: 44 AM CDT documented as of this encounter Plan of Treatment Upcoming Encounters Date Type Department Care Team (Late st Contact Info) Description 12/18/2024 8:40 AM CDT Office Visit [facility] Multispecialty [facility] - [address] [place] [address] Daniel Franz MD [address] [address] documented as of this encounter Visit Diagnoses Not on filedocumented in this encounter Additional Health Concerns Assessment Noted Time PHQ-9 Depression Total Score: 2 06/20/19 25 9:08 AM VIRTUAL REALITY SPECIALIST documented as of this encounter Care Teams Textile Chemist Relationship Specialty Start Date End Date Daniel Franz MD [address] [address] PCP - General INTERNAL MEDICINE 03/27/24 documented as of this encounter
--- OUTSIDE RECORDS SUMMARY | 2024-09-22 00:40 | XMS_ITS | Clinical Summary ---
Author Organization [facility] Address [facility] [place] [address] Care Team Providers Care Barn Worker Name Role Phone Daniel Franz MD Primary Care Provider [phone] Allergies No known active allergies Medications Olmesartan-amLODIPi ne-HCTZ 40-5-25 MG TabIndications:Prim everett hypertension Take 1 tablet by mouth daily. 90 tablet 1 5 Active albuterol sulfate HFA 108 (90 Base) MCG/ACT inhalerIndications: Environmental allergies Inhale 1 puff into the lungs every 6 (six) hours as needed for Wheezing. 18 g 4 5 Active acetaminophen CR (TYLENOL 8 HOUR ARTHRITIS PAIN) 650 MG Tab CR 8 hr tabletIndications:P rimary osteoarthritis of both knees Take 1 tablet (650 mg total) by mouth 3 (three) times daily as needed. 180 tablet 5 Active Active Problems Problem Noted Date Diagnosed Date High blood pressure 01/22/2017 Overview (07/26/2024): Not sure of when diagnosed Diverticulosis of colon 06/04/2011 Encounters Date Type Department Care Team Description 09/19/2024 Scan MG HEALTH INFO SRVCS Scanned, Doc Med Group 08/29/2024 Scan MG HEALTH INFO SRVCS Scanned, Doc Med Group 08/15/2024 Scan [facility] HEALTH INFO [facility]VCS Scanned, Doc Med [facility] Lab (SCAN) 08/14/2024 Scan [facility] HEALTH INFO SRVCS Scanned, Doc [facility] Procedure (SCAN); Image (SCAN) 08/09/[address] [facility] [place] [address] [facility] [address] [place] [address] Daniel Franz MD Other 08/08/2024 Telephone [place] [address] [facility] [address] [place] [address] Daniel Franz MD Lab Results 08/07/2024 Telephone [place] [address] [facility] [address] [place] [address] Daniel Franz MD Surgical Clearance 08/04/2024 Scan [facility] HEALTH INFO SRVCS Scanned, Doc Med Group Lab (SCAN) 08/04/2024 Scan [facility] HEALTH INFO SRVCS Scanned, Doc Med Group Lab (SCAN) 08/04/2024 Travel 08/03/2024 Telephone [place] [address] [place] [address] [address] [place] [address] Daniel Franz MD Record Request 08/02/2024 Telephone [place] [address] [facility] [address] [place] [address] Daniel Franz MD Information 08/01/2024 8:40 AM CDT Office Visit [place] [address] [place] [address] [place] [address] Daniel Franz MD Surgical Clearance (Spironlactone is making her fatigued, nauseous, dizzy, and light headed ); Knee Pain 08/01/2024 Travel 07/26/2024 Telephone [place] [address] [facility] [address] [place] [address] Daniel Franz MD Lab Results 07/25/2024 [place] [address] [address] [facility] [address] [place] [address] Dainel Franz MD Follow Up 07/22/2024 Telephone [place] [address] [facility] [address] [place] [address] Daniel Franz MD Medication Information 07/21/2024 11:30 AM BACKUP ENGINEER Laboratory Only [place] [address] [address] [facility] [address] [place] [address] Daniel Franz MD 07/21/2024 Travel 07/14/2024 4:20 PM BACKUP ENGINEER Telemedicine [place] [address] [address] [address] [place] [address] Daniel Franz MD Hypertension 07/14/2024 9:00 AM BACKUP ENGINEER Allied Health/Nurse Visit [place] [address] [address] [address] [place] [address] Daniel Franz MD Allied Health Visit 07/14/2024 Telephone [place] [address] [address] [place] [address] Daniel Franz MD Appointment Request 07/14/2024 Telephone [place] [address] [address] [place] [address] Daniel Franz MD Appointment Request 07/04/2024 Telephone [place] [address] [address] [address] [place] [address] Daniel Franz MD Record Request from Last 3 Months Immunizations Immunization Administration Dates Next Due Fluzone High Dose [...] Sex Assigned at Female 06/19/2024 7:39 AM BACKUP ENGINEER Legal Sex Female 10:44 AM BACKUP ENGINEER Gender Identity Female 06/19/2024 7:39 AM BACKUP ENGINEER Sexual Orientation Straight 08/01/2024 8: 44 AM [...] 8:40 AM CDT Office Visit [facility] Medical [facility] Mult[facility]pecialty [facility] - [place] [address] [address] [place] [address] Daniel Franz MD [address] [place] [address] Health Maintenance Due Date Last Done Comments Colorectal Cancer Screening Colonoscopy (10 Years) 1950 DTaP, Tdap and Td Vaccines (1 - Tdap) 1969 Zoster Vaccines (1 of 2) 2000 Annual Medicare Wellness Visit 07/28/2015 Dexa Scan (General) 07/28/2015 COVID-19 Vaccine ( season) 2024 03/14/2024, 03/04/2023, 03/17/2022, Additional history exists RSV Immunization or 60+ Years (1 - 1-dose 75+ series) 2025 Mammogram Screening 03/07/2026 03/07/2024, 02/23/2024, 02/23/2024 Pneumococcal Vaccine: 50+ Years Completed 09/03/2022 Hepatitis C Completed 06/20/2024 PHQ-2 (Physician [place]) Completed 06/20/2024 Meningococcal B Vaccine Aged Out [...] Associated Diagnosis Comments OUTSIDE LAB (SCAN ORDER) 08/15/2024 IMAGE GENERIC 08/14/2024 PROCEDURE GENERIC (SCAN ORDER) 08/14/2024 OUTSIDE LAB (SCAN ORDER) Routine 08/04/2024 OUTSIDE LAB (SCAN ORDER) 08/04/2024 OUTSIDE LAB (SCAN ORDER) 08/04/2024 OUTSIDE LAB (SCAN ORDER) 08/04/2024 CBC W/DIFF AUTOMATED Routine 08/01/2024 9:19 AM CDT Pre-operative clearance PROTHROMBIN TIME, VENOUS Routine 025 9:19 AM CDT Pre-operative clearance Abnormal coagulation profile ELECTROCARDIOGRAM (NON MIDMARK ACQUIRED) Routine 08/01/2024 9:15 AM CDT Pre-operative clearance COLLECTION VENOUS BLOOD VENIPUNCTURE Routine 08/01/2024 9:03 AM CDT Pre-operative clearance BASIC METABOLIC PANEL Routine 07/21/2024 11:43 AM BACKUP ENGINEER Drug therapy COLLECTION VENOUS BLOOD VENIPUNCTURE Routine 07/21/2024 11:42 AM BACKUP ENGINEER Drug therapy COLLECTION VENOUS BLOOD VENIPUNCTURE Routine 07/14/2024 4:53 PM BACKUP ENGINEER Primary hypertension HEPATITIS C ANTIBODY Routine 06/20/2024 8:45 AM BACKUP ENGINEER Establishing care with new doctor, encounter for General medical exam Drug therapy MAMMOGRAM GENERIC (SCAN ORDER) 03/07/2024 from Last 3 Months or Most Recently Relevant to Health Maintenance Results * OUTSIDE LAB (SCAN ORDER) (08/15/2024) Only the most recent of5 resultswithin the time period is included. 08/15/2024 [facility] Scanned SCANNING Final Resu lt * IMAGE GENERIC (08/14/2024) Anatomical Region Laterality Modality Other 08/14/2024 [facility] Scanned SCANNING Final Resu lt * PROCEDURE GENERIC (SCAN ORDER) (08/14/2024) 08/14/2024 [facility] Scanned SCANNING Final Resu lt * PROTIME/INR, VENOUS (08/01/2024 9:19 AM CDT) PROTIME 9.8 9.3 - 11.6 SEC 08/01/2024 3:27 PM CDT [facility] INR 0.9 0.9 - 1.1 08/01/2024 3:27 PM CDT [facility] Comment: TREATMENT OR PROPHYLAXIS AGAINST: THERAPEUTIC RANGE (INR): VENOUS THROMBOSIS 2.0-3.0 PULMONARY EMBOLUS 2.0-3.0 MECHANICAL PROSTHETIC VALVES 2.5-3.5 08/01/2024 9:19 AM CDT Daniel Franz MD LABORATORY Final Result [facility] [address] [place] [address], [place] [phone] * (ABNORMAL) CBC W/DIFF AUTOMATED (08/01/2024 9:19 AM CDT) WBC 4.21 4.00 - 10.80 x10'3/uL 08/01/2024 3:32 PM CDT [facility] RBC 5.22 4.10 - 5.40 x10'6/uL 08/01/2024 3:32 PM CDT [facility] HGB 13.2 12.0 - 16.0 G/DL 08/01/2024 3:32 PM CDT [facility] HCT 43.8 36.0 - 47.0 % 08/01/2024 3:32 PM CDT [facility] MCV 83.9 78.0 - 100.0 FL 08/01/2024 3:32 PM CDT [facility] MCH 25.3(L) 27.0 - 31.0 PG 08/01/2024 3:32 PM CDT [facility] MCHC 30.1(L) 33.0 - 36.0 G/DL 08/01/2024 3:32 PM CDT [facility] RDW 13.7 11.5 - 14.5 % 08/01/2024 3:32 PM CDT [facility] PLT 255 150 - 350 x10'3/uL 08/01/2024 3:32 PM CDT [facility] MPV 12.2(H) 7.4 - 10.4 FL 08/01/2024 3:32 PM CDT [facility] DIFFERENTIAL TYPE AUTOMATED DIFFERENTIAL 08/01/2024 3:32 PM CDT [facility] NEUTROPHILS % 52.5 % 08/01/2024 3:32 PM CDT [facility] LYMPHOCYTES % 35.2 % 08/01/2024 3:32 PM CDT [facility] MONOCYTES % 7.1 % 08/01/2024 3:32 PM CDT [facility] EOSINOPHILS % 4.0 % 08/01/2024 3:32 PM CDT [facility] BASOPHILS % 1.0 % 08/01/2024 3:32 PM CDT [facility] IMMATURE GRANS % 0.2 % 08/01/2024 3:32 PM CDT [facility] ABS. NEUTROPHILS 2.21 1.60 - 8.30 x10'3/uL 08/01/2024 3:32 PM CDT [facility] ABS. LYMPHOCYTES 1.48 0.80 - 4.70 x10'3/uL 08/01/2024 3:32 PM CDT [facility] ABS. MONOCYTES 0.30 0.00 - 1.50 x10'3/uL 08/01/2024 3:32 PM CDT [facility] ABS. EOSINOPHILS 0.17 0.00 - 0.40 x10'3/uL 08/01/2024 3:32 PM CDT [facility] ABS. BASOPHILS 0.04 0.00 - 0.20 x10'3/uL 08/01/2024 3:32 PM CDT [facility] ABS. IMMATURE GRANULOCYTES 0.01 0.00 - 0.03 x10'3/uL 08/01/2024 3:32 PM CDT [facility] 08/01/2024 9:19 AM CDT us Daniel Franz MD LABORATORY Final Result [facility] [address] [place] [address], * EKG WELCHALLEN ACQUIRED (08/01/2024 9:15 AM CDT) 08/01/2024 9:15 AM CDT Narrative [facility] RAD - 08/18/2024 7:24 PM CDT [place] [address] [place] [address] Test Date: 2024-08-01 Pat Name: BING CASTELLANOSAS Department: 171 Room: Gender: Female Key Filer: : 1950 Requested By: DANIEL FRANZ Order Number: [id number] Reading MD: Daniel Franz Measurements Intervals [place] Rate: 61 P: 68 [place]: 189 QRS: 24 QRSD: 82 T: 66 QT: 394 QTc: 398 Interpretive Statements SINUS RHYTHM Procedure Note Daniel Franz MD - 08/18/2024 [facility] [address] [place] [address] Test Date: 2024-08-01 Pat Name: BING GARBER Department: 171 Room: Gender: Female Key Filer: : 1950 Requested By: DANIEL FRANZ Order Number: [id number] Reading MD: Daniel Franz Measurements Intervals [place] Rate: 61 P: 68 [place]: 189 QRS: 24 QRSD: 82 T: 66 QT: 394 QTc: 398 Interpretive Statements SINUS RHYTHM Daniel Franz MD PROCEDURES-ORDERABLE NO CHARGE F inal Result [facility] * (ABNORMAL) BASIC METABOLIC PANEL (07/21/2024 11:43 AM BACKUP ENGINEER) SODIUM S/P/B 140 136 - 145 MMOL/L 07/21/2024 7:36 PM [facility] POTASSIUM S/P/B 4.4 3.5 - 5.1 MMOL/L 07/21/2024 7:36 PM [facility] CHLORIDE S/P/B 103 98 - 107 MMOL/L 07/21/2024 7:36 PM [facility] CO2 33.0(H) 21 - 32 MMOL/L 07/21/2024 7:36 PM [facility] GLUCOSE 87 70 - 99 MG/DL 07/21/2024 7:36 PM [facility] BUN 21(H) 7 - 18 MG/DL 07/21/2024 7:36 PM [facility] CREATININE S/P/B 1.26(H) 0.55 - 1.02 MG/DL 07/21/2024 7:36 PM [facility] CALCIUM S/P/B 9.5 8.4 - 10.5 MG/DL 07/21/2024 7:36 PM [facility] ANION GAP 4.0(L) 5 - 15 MMOL/L 07/21/2024 7:36 PM [facility] Comment:REFERENCE RANGE NOT ESTABLISHED OSMOLALITY (CALC) 292 MOSM/KG 025 7:36 PM [facility] Comment:REFERENCE RANGE NOT ESTABLISHED GFR ESTIMATE 45(L) >90 ML/MIN/1. 73 M2 07/21/2024 7:36 PM [facility] GFR NOTES GFR REFERENCE S: 07/21/2024 7:36 PM [facility] Comment: THE ESTIMATED GFR IS CALCULATED [...] <15 ml/min/1.73 m2 07/21/2024 11:4 3 AM BACKUP ENGINEER Daniel Franz MD LABORATORY Final Result Performing Organization Address City/[facility] Co de Phone Number [facility] [address] [place] [address], [place] [phone] * HEPATITIS C ANTIBODY (06/20/2024 8:45 AM BACKUP ENGINEER) HEPATITIS C AB NON-REACTI VE NON-REACT [place] 06/22/2024 6:39 PM BACKUP ENGINEER [facility] Comment: ANTIBODIES TO HCV NOT DETECTED. DOES NOT EXCLUDE THE POSSIBILITY OF EXPOSURE TO HCV. 06/20/2024 8:45 AM BACKUP ENGINEER Daniel Franz MD LABORATORY Final Result Performing Organization Address [facility] de Phone Number [facility] [address] [place] [address], [place] [phone] * MAMMOGRAM GENERIC (SCAN ORDER) (03/07/2024) Anatomical Region Laterality Modality Other 03/07/2024 us [facility] Scanned SCANNING Final Resu lt from Last 3 Months or Most Recently Relevant to Health Maintenance Insurance MEDICARE AARP Care Teams Barn Worker Relationship Specialty Start Date End Date Daniel Franz MD [address] [address] PCP - General INTERNAL MEDICINE 03/27/24
[2024-09-22 07:10] VITALS: BP 209/88; PULSE 86; RESP 16; TEMP 37.1; O2SAT 100; BMI 33.1
[2024-09-22] MEDS: LACTATED RINGERS 1,000 ML 30 ML IV CONT (07:40)
[2024-09-22 07:45] VITALS: BP 196/73
--- NOTE | 2024-09-22 07:47 | WPDANESEPPF ---
Anes - Initial Pre Proc Eval Procedure: Operation Date: 09/22/24 09:00 Proposed Procedures p Right Knee Manipulation - Bret Marshall MD Date/Time: 09/22/24 07:47 Surgeon: Bret Marshall MD Pre Op Diagnosis: right knee pain Patient Data Age: 74 Gender: F Height: 1.64 m Weight: 88 kg Allergies Allergy/AdvReac Type Severity Reaction Status Date / Time No Known Allergies Allergy Unknown Verified 09/20/24 11:21 Home Medications ?Medication ?Instructions ?Recorded ?Confirmed ?Type olmesartan 40 mg-amlodipine 5 1 tablet PO DAILY #90 tabs 09/02/23 09/20/24 Rx mg-hydrochlorothiazide 25 mg tablet acetaminophen 650 mg 1,300 mg PO .Q8 PRN pain 08/04/24 09/20/24 History tablet,extended release (8 Hour Pain Reliever) albuterol sulfate 90 mcg/actuation 1 inh inhalation Q4H PRN shortness 08/04/24 09/20/24 History aerosol inhaler of breath or wheezing cholecalciferol (vitamin D3) 25 1,000 unit PO 2XW 08/04/24 09/20/24 History mcg (1,000 unit) capsule cyanocobalamin (vitamin B-12) 1,000 mcg PO 2XW 08/04/24 09/20/24 History 1,000 mcg capsule fexofenadine 180 mg tablet 180 mg PO DAILY PRN sinus symptoms 08/04/24 09/20/24 History (Elizabeth Allergy) fish, borage, flaxseed oils-omega 1 cap PO 2XW 08/04/24 09/20/24 History 3,6,9 comb no.1 1,200 mg capsule ([place] 3-6-9) magnesium oxide 400 mg PO 2XW 08/04/24 09/20/24 History prednisone 10 mg tablet 10 mg PO BID 10 days #20 tabs 09/19/24 09/20/24 Rx Patient hx anesthesia problems: none Family hx anesthesia problems: none Results Review: All pre-operative results and documents have been reviewed as part of the pre-operative evaluation. [facility] Past Medical History Medical History (Updated 09/21/24 @ 16:21 by Darron Salas DO) Renal insufficiency Obstructive sleep apnea Asthma Gastroesophageal reflux Allergic rhinitis Hypertension Surgical History Surgical History H/O section Acquired absence of both cervix and uterus Family History Family History Mother Cerebrovascular accident Father Family history of renal failure Social History Social History (Updated 09/19/24 @ 08:34 by Kate Seymour [facility] [address]) Smoking status: Never smoker Alcohol intake: never Substance use: never Substance use type: does not use Current Housing: Decline to Answer Concerned About Future Housing: Decline to Answer Difficulty Paying Gas/Electric Bills: Decline to Answer Difficulty Paying for Meds: Decline to Answer Currently Unemployed: Decline to Answer Education: Decline to Answer Difficulty w/ Childcare or Family Care: Decline to Answer Living arrangements: with family Additional living arrangements comments: [employer] Occupation/Education: retired Gender identity (if verbalized by the patient): Female Spiritual care concerns: No Anes - Eval Final PreProcedure Day of Procedure 09/22/24 07:47 Patient weight: obese Heart: regular rate and rhythm Lungs: clear to auscultation Airway: Mallampati scale class II Neurological: alert and oriented Last oral intake: >/= 8 hours ASA classification: III Emergent: no Anesthetic plan: proceed Anesthesia type and monitoring: general and standard monitoring Results Review: All pre-operative results and documents have been reviewed as part of the pre-operative evaluation. Informed Consent: The patient's anesthetic plan and its attendant risks and benefits were discussed with the patient/family/POA. Questions were solicited and answers provided to the satisfaction of the patient/family/POA.
[2024-09-22] MEDS: MIDAZOLAM HCL (*CRX) 2 MG/2 ML VIAL IV PUSH (08:00)
[2024-09-22] MEDS: ACETAMINOPHEN 500 MG TABLET 1000 MG PO (08:01)
[2024-09-22] MEDS: KETOROLAC 15 MG/ML VIAL (*BKC) IV PUSH (08:02)
--- NOTE | 2024-09-22 08:21 | WPDHPUPDATE1 ---
History and Physical Update Update Date/Time: 09/22/24 08:21 History and Physical has been reviewed, including an updated exam of the patient. There are NO changes in the patient's condition. Risks, benefits, and alternatives have been discussed and questions answered. Patient agrees to proceed with procedure.
[2024-09-22 08:26] VITALS: BP 183/82
--- NOTE | 2024-09-22 09:11 | W.PM.PROC2 ---
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 General anesthetic was administered. The knee was gently manipulated into flexion and I obtained about 120?. I then attempted to manipulate into extension and could and she did 2 to 3? of extension. At this point the knee was stable no appreciable fracture was appreciated and the patient left the operating room in satisfactory condition. Complications No immediate complications Condition Stable AM Billing Surgery - Charge Forward: Surgery Billing (10300 Manipulation Total Knee)
[2024-09-22 09:14] VITALS: BP 181/70; PULSE 73; RESP 16; O2SAT 100
[2024-09-22 09:40] VITALS: BP 168/63; PULSE 67; RESP 16; O2SAT 100
[2024-09-22] MEDS: fentaNYL CITRATE INJ (*CRX) 100 MCG/2 ML VIAL 25 MCG IV PUSH ×2 (09:47→10:01)
[2024-09-22] MEDS: oxyCODONE HCL (*CRX) 5 MG TAB IR PO (10:01)
[2024-09-22 10:10] VITALS: BP 180/66; PULSE 66; RESP 16
== END 2024-09-22 10:38 | disposition home or self-care (01) ==
PROVIDERS: PCP Internal Medicine; Visit Provider Orthopaedic Surgery
PROC: (CPT 27570; principal; 2024-09-22 09:00)
DX: T84.82XA Fibrosis due to internal orthopedic prosthetic devices, implants and grafts, initial encounter (principal); M25.561 Pain in right knee; Y83.1 Surgical operation with implant of artificial internal device as the cause of abnormal reaction of the patient, or of later complication, without mention of misadventure at the time of the procedure; E66.9 Obesity, unspecified; Z68.33 Body mass index [BMI] 33.0-33.9, adult
CPT/HCPCS: 27570; A9270; J0360; J1885; J2003; J2250; J2704; J3010; J7120

== ENCOUNTER 2024-11-08 12:30 | Outpatient (RCR) | payer MEDICARE, SELFPAY ==
--- NOTE | 2024-08-22 09:54 | OPREHPOC ---
Outpatient Therapy Plan of Care This is a Multidisciplinary Plan of Care that may contain components documented by all disciplines (PT, OT, and ST.) PT Problem 1 PT Problem #1 Knowledge Deficit PT Goal 1 Goal / Goal Update 1. Pt to be IND with issued HEP PT Problem 2 PT Problem #2 Pain PT Goal 1 Goal / Goal Update 1. Pt to report pain no greater than 3/10 in the last week. 2. pt to report 75% return to PLOF. PT Problem 3 PT Problem #3 Impaired Range of Motion PT Goal 1 Goal / Goal Update 1. Pt to increase active knee flexion to 120 deg 2. Pt to increase active knee extension to no greater than 3 deg. PT Problem 4 PT Problem #4 Impaired Gait PT Goal 1 Goal / Goal Update 1. Pt to improve 2 min walk distance from 50ft to 250ft. 2. Pt to ambulate without AD on level surface. Target Visit 10
--- NOTE | 2024-08-22 09:54 | PTOPEVAL1 ---
Assessment and note entered by Hero Escamilla, PT, DPT Evaluation Information Assessment Status Evaluation Diagnosis R TKA ICD-10 Condition Codes (PT) Pain in right knee M25.561,Aftercare following joint replacement surgery Z47.1 Subjective Information Pt is 1 week post op, from a TKA. She states she is having troubles bending her knee. She has been walking the halls a couple of times a day. Pt wants to be able to walk around the store without pain, has a trip planned [place] [employer]. Reported Pain Level Pain Score 8: Self Report Assessment PT Clinical Summary Pt presents to therapy today for her initial evaluation following a R TKA on 08/14/24. Today she demonstrates significant limitations, limited by pain. She demonstrate 70 deg of passive knee flexion, and is lacking 10 deg from terminal knee extension. She ambulates as a significantly decreased speed. Skilled therapy services are indicated to address deficits noted above, to manage pain, to improve functional mobility, and to return to PLOF. Plan of Care Interventions Electrical Stimulation,Gait Training,Hot Pack/Cold Pack,Manual Therapy,Neuro Re-education,Patient/ Caregiver Education,Therapeutic Activities, Therapeutic Exercise PT Services Indicated Yes Treatment Frequency and 2-3x/wk for 10 visits Duration These treatments will address the objective and functional deficits as defined above. The patient will be advanced safely and appropriately in order for the patient to progress towards his/her prior level of function. Additional exercises will be introduced and as well as a comprehensive home exercise program upon discharge, if needed, ?to ensure carryover of functional gains achieved in the clinic. This treatment plan has been reviewed and agreement upon by the patient.
--- NOTE | 2024-09-13 09:51 | OPREHPOC ---
Outpatient Therapy Plan of Care This is a Multidisciplinary Plan of Care that may contain components documented by all disciplines (PT, OT, and ST.) PT Problem 1 PT Problem #1 Knowledge Deficit PT Goal 1 Goal / Goal Update 1. Pt to be IND with issued HEP 09/13/24: 1. met Progress Met PT Problem 2 PT Problem #2 Pain PT Goal 1 Goal / Goal Update 1. Pt to report pain no greater than 3/10 in the last week. 2. pt to report 75% return to PLOF. 09/13/24: 1. not met 2. Pt reports 50% Progress Not Met PT Problem 3 PT Problem #3 Impaired Range of Motion PT Goal 1 Goal / Goal Update 1. Pt to increase active knee flexion to 120 deg 2. Pt to increase active knee extension to no greater than 3 deg. 09/13/24: 1. progressing to 95 deg 2. pt regression to 20 deg Progress Not Met PT Problem 4 PT Problem #4 Impaired Gait PT Goal 1 Goal / Goal Update 1. Pt to improve 2 min walk distance from 50ft to 250ft. 2. Pt to ambulate without AD on level surface. 09/13/24: 1. progressing, 225ft 2. progressing, with deviations Target Visit 10
--- NOTE | 2024-09-13 09:53 | PTOPPROG ---
Assessment and note entered by Hero Escamilla, PT, DPT Evaluation Information Assessment Status Progress Diagnosis R TKA ICD-10 Condition Codes (PT) Pain in right knee M25.561,Aftercare following joint replacement surgery Z47.1 Subjective Information Pt states she did a lot of stretching yesterday, and her knee and ankle are both really sore today. Has not been using her walker at home. Overall states she is doing well, has minimal pain unless she is stretching. Assessment PT Clinical Summary Pt presents to therapy today for her progress report following 9 visits of skilled therapy following a R TKA on 08/14/24. Today she demonstrates improve active and passive knee motion but still has significant limitations, actively she has 0-20-95 degs and passively 0-15- 100 deg. Her gait speed has improved but she demonstrates significant deviations d/t knee flexion contracture. Continuation of skilled therapy are indicated to progress knee motion, to manage pain, to improve functional mobility, and to return to PLOF. Plan of Care Interventions Electrical Stimulation,Gait Training,Hot Pack/Cold Pack,Manual Therapy,Neuro Re-education,Patient/ Caregiver Education,Therapeutic Activities, Therapeutic Exercise PT Services Indicated Yes Treatment Frequency and 2-3x/wk for 10 visits Duration These treatments will address the objective and functional deficits as defined above. The patient will be advanced safely and appropriately in order for the patient to progress towards his/her prior level of function. Additional exercises will be introduced and as well as a comprehensive home exercise program upon discharge, if needed, ?to ensure carryover of functional gains achieved in the clinic. This treatment plan has been reviewed and agreement upon by the patient.
--- NOTE | 2024-09-21 09:52 | PCPTNOTE ---
Patient canceled appointment for this date due to having a manipulation on 09/22.
--- NOTE | 2024-09-26 14:07 | OPREHPOC ---
Outpatient Therapy Plan of Care This is a Multidisciplinary Plan of Care that may contain components documented by all disciplines (PT, OT, and ST.) PT Problem 1 PT Problem #1 Knowledge Deficit PT Goal 1 Goal / Goal Update 1. Pt to be IND with issued HEP 09/13/24: 1. met Progress Met PT Problem 2 PT Problem #2 Pain PT Goal 1 Goal / Goal Update 1. Pt to report pain no greater than 3/10 in the last week. 2. pt to report 75% return to PLOF. 09/13/24: 1. not met 2. Pt reports 50% Progress Not Met PT Problem 3 PT Problem #3 Impaired Range of Motion PT Goal 1 Goal / Goal Update 1. Pt to increase active knee flexion to 120 deg 2. Pt to increase active knee extension to no greater than 3 deg. 09/29/24: 1. 112 Passively 2. 12 degrees Passively Progress Not Met PT Problem 4 PT Problem #4 Impaired Gait PT Goal 1 Goal / Goal Update 1. Pt to improve 2 min walk distance from 50ft to 250ft. 2. Pt to ambulate without AD on level surface. 09/13/24: 1. progressing, 225ft 2. progressing, with deviations Target Visit 10 Progress Partially Met
--- NOTE | 2024-09-26 14:08 | PTOPPROG ---
Assessment and note entered by Oniel Peraza, PT Evaluation Information Assessment Status Progress Diagnosis R TKA ICD-10 Condition Codes (PT) Pain in right knee M25.561 Onset 09/22/24 Subjective Information Reports that she is still stiff and was sore all weekend. Pain is a little better but she si still having a lot of trouble bending the knee. Assessment PT Clinical Summary Patient underwent manipulation post TKA. Patient ROM improved from last progress note and treatment will emphasize ROM of knee exclusively for penitentiary functional return. HEP was updated to work on continued aggressive knee ROM. Plan of Care Interventions Electrical Stimulation,Gait Training,Hot Pack/Cold Pack,Manual Therapy,Neuro Re-education,Patient/ Caregiver Education,Therapeutic Activities, Therapeutic Exercise PT Services Indicated Yes Treatment Frequency and 3x/week for 10 visits Duration These treatments will address the objective and functional deficits as defined above. The patient will be advanced safely and appropriately in order for the patient to progress towards his/her prior level of function. Additional exercises will be introduced and as well as a comprehensive home exercise program upon discharge, if needed, ?to ensure carryover of functional gains achieved in the clinic. This treatment plan has been reviewed and agreement upon by the patient.
--- NOTE | 2024-10-03 09:08 | PCPTNOTE ---
Patient no showed to appointment this date. Called and left voicemail.
--- NOTE | 2024-10-18 12:04 | PTOPPROG ---
Assessment and note entered by Bennie Mauricio Evaluation Information Assessment Status Progress Diagnosis R TKA ICD-10 Condition Codes (PT) Pain in right knee M25.561 Onset 09/22/24 Subjective Information Pt. reports that she is still noticing stiffness in the right knee. She states that her inability to straighten and bend the knee is still concerning. She states that she still experiences pain, which also limits her. She has developed recent right foot pain and will be seeing a specialist next week regarding her foot pain. She states that she has returned to driving locally. She reports that she still moves slowly and notices she still cannot walk as far as she did prior to surgery. She reports that she would like to continue with physical therapy in order to further improve her walking and ROM. Assessment PT Clinical Summary Mrs. Reyes has attended a total of 18 treatment sessions. She demonstrates improvement in ROM and gait mechanics. Despite these improvements, limited ROM, edema and weakness continue to hinder her performance of IADL's. At this time recommend transitioning more focus toward improving l.e. strength in preparation for improved independence with IADL's. Continue monitoring ROM improvements and encourage pt. to remain aggressive with ROM exercise and edema control at home. Plan of Care Interventions Electrical Stimulation,Gait Training,Hot Pack/Cold Pack,Manual Therapy,Neuro Re-education,Patient/ Caregiver Education,Therapeutic Activities, Therapeutic Exercise PT Services Indicated Yes Treatment Frequency and 1x/week x 4 visits Duration These treatments will address the objective and functional deficits as defined above. The patient will be advanced safely and appropriately in order for the patient to progress towards his/her prior level of function. Additional exercises will be introduced and as well as a comprehensive home exercise program upon discharge, if needed, ?to ensure carryover of functional gains achieved in the clinic. This treatment plan has been reviewed and agreement upon by the patient.
--- NOTE | 2025-02-02 13:15 | PTOPDC ---
Assessment and note entered by Oniel Peraza, PT Evaluation Information Assessment Status Discharge - Pt Not Present Diagnosis R TKA ICD-10 Condition Codes (PT) Pain in right knee M25.561 Onset 09/22/24 Subjective Information Patient cancelled last progress session secondary to foot pain. Assessment PT Clinical Summary Patient discharged from therapy at this time following cancellation of last progress note. Please refer to last treatment for discharge status. Plan of Care PT Services Indicated Yes
== END 2024-11-19 23:59 | disposition home or self-care (01) ==
LOC: ANHGOSHPT 12:30
PROVIDERS: PCP Internal Medicine; Visit Provider Orthopaedic Surgery
DX: M17.0 Bilateral primary osteoarthritis of knee (principal)
CPT/HCPCS: 97014; 97110; 97116; 97140; 97161; 97530; G0283

== ENCOUNTER 2025-03-06 12:19 | Outpatient (CLI) | payer MEDICARE, SELFPAY ==
--- NOTE | ~2025-03-06 | MM_ITS ---
EXAMINATION: MM screening garcía BI w christy HISTORY: Screening TECHNIQUE: Craniocaudal and mediolateral oblique 3-D tomosynthesis images were obtained and synthetic 2-D images were generated. CAD analysis was submitted and interpreted. COMPARISON: BREAST PARENCHYMAL COMPOSITION: There are scattered areas of fibroglandular density. FINDINGS: There is no evidence of suspicious mass, calcification, or architectural distortion to suggest malignancy. There has been no suspicious interval change. IMPRESSION: 1. No mammographic evidence of malignancy. Recommend routine screening mammography in one year. BI-RADS Category 2: Benign finding(s) Reviewed, dictated and finalized at location Q. IMPRESSION: 1. No mammographic evidence of malignancy. Recommend routine screening mammogra phy in one year. BI-RADS Category 2: Benign finding(s)
--- OUTSIDE RECORDS SUMMARY | 2025-03-06 14:00 | XMS_ITS | Clinical Summary ---
Author Organization [facility] Address [address] [place] [address] Care Team Providers Care Preassembler [employer] Name Role Phone Debbie Dacosta MD Primary Care Provider Source Comments [facility] Affiliates and Associated Physician Practices is amultiple site organization consisting of ambulatory clinics and hospital sitesin [place], [place], [place] and [place]. This disclosure is being madepursuant to the Care Everywhere program and may not contain all informatio navailable regarding this patient. Last updated 18.[facility] Allergies No known active allergies Medications * [...] on file Legal Sex Female 6:29 AM HEAD OF PHYSICS Gender Identity Not on file Sexual Orientation Not on file Last Filed Vital Signs Vital Sign Reading Time Taken Comments Blood Pressure 178/59 06/02/2011 9:47 AM HEAD OF PHYSICS Pulse 70 06/02/2011 9:47 AM HEAD OF PHYSICS Temperature - - Respiratory Rate 18 06/02/2011 9:47 AM HEAD OF PHYSICS Oxygen Saturation - - Inhaled Oxygen Concentration - - Weight 95.3 kg (210 lb) 06/01/2011 4:06 PM HEAD OF PHYSICS Height 167.6 cm (5' 6) 06/01/2011 4:06 PM HEAD OF PHYSICS Body Mass Index 33.89 06/01/2011 4:06 PM HEAD OF PHYSICS Plan of Treatment Health Maintenance Due Date [...] - COLON CA SCREENING 06/02/2021 06/02/19 12 DEPRESSION SCREENING 05/24/2024 COVID-19 VACCINE ( - 2023-2 5 season) 2025 INFLUENZA VACCINE (#1) 2025 Respiratory Syncytial Virus (RSV) Vaccine Pt: [...] ENDOSCOPY, COLON, SCREENING Routine 06/02/2011 10:46 AM HEAD OF PHYSICS from Last 3 Months or Most Recently Relevant to Health Maintenance Results * ENDOSCOPY, COLON, SCREENING (06/02/2011 10:46 AM HEAD OF PHYSICS) Narrative Transcriptions Meet Hogan MD - 06/02/2011 10:46 AM CST us Meet Hogan MD GI PROCEDURE ORDERABLES Final Re sult [facility] ENDOSCOPY from Last 3 Months or Most Recently Relevant to Health Maintenance Insurance [employer] Care Teams Pre[employer]sembler [employer] Relationship Specialty Start Date End Date Debbie Dcaosta MD PCP - General Obstetrics and Gynecology 04/20/11
== END 2025-03-06 12:20 | disposition home or self-care (01) ==
LOC: ANHFOHIMG 12:22
PROVIDERS: PCP Internal Medicine; Visit Provider Internal Medicine
DX: Z12.31 Encounter for screening mammogram for malignant neoplasm of breast (principal); Z78.0 Asymptomatic menopausal state
CPT/HCPCS: 77063; 77067